=== PATIENT | female | born 1945 | race Caucasian/White ===

== ENCOUNTER 2022-06-01 19:03 | Inpatient (IN) ==
[2022-06-01 20:14] LABS: ABS Lymphocytes 0.6 10^3/ul (1.0-4.8); ABS Monocytes 0.4 10^3/ul (0-0.8); ABS Neutrophils 6.8 10^3/ul (1.5-7.7); Eosinophil % 0.3 %; Hematocrit 27 % (35-47); Hemoglobin 9.4 g/dL (12.0-16.0); Lymphocyte % 7.8 %; Mean Corpuscular HGB Conc 35 g/dL (31-36); Mean Corpuscular Hemoglobin 33 pg (27-31); Mean Corpuscular Volume 95 fL (80-97); Mean Platelet Volume 8.5 fL (7.4-10.4); Platelet Count 182 10^3/uL (150-450); Red Blood Count 2.83 10^6 /uL (3.70-4.87); Red Cell Distribution Width 12 % (10-15); White Blood Count 7.8 10^3/uL (3.5-10.8)
[2022-06-01 20:42] LABS: ALT 20 U/L (7-52); AST 19 U/L (13-39); Albumin 2.6 g/dL (3.2-5.2); Albumin/Globulin Ratio 0.4 (1-3); Alkaline Phosphatase 69 U/L (35-149); Blood Urea Nitrogen 70 mg/dL (6-24); CO2 Carbon Dioxide 36 mmol/L (22-32); Chloride 100 mmol/L (101-111); Creatine Kinase 54 U/L (10-223); Creatinine, Serum 3.23 mg/dL (0.51-0.95); Glucose 206 mg/dL (70-100); Lipase 43 U/L (11.0-82.0); Magnesium 1.8 mg/dL (1.9-2.7); Phosphorus 3.6 mg/dL (2.5-5.0); Potassium 4.4 mmol/L (3.5-5.0); Sodium 136 mmol/L (135-145); Total Protein 9.6 g/dL (6.4-8.9); eGFR CKD-EPI 14.1 (>60)
[2022-06-01 20:50] LABS: Calcium 16.2 mg/dL (8.6-10.3)
[2022-06-01 21:24] LABS: Venous Bicarbonate HCO3 31.1 mmol/L (24-28)
[2022-06-01 21:57] LABS: PCO2 Arterial 53 mmHg (35-45); PO2 Arterial 96 mmHg (80-100)
[2022-06-01] MEDS: Calcitonin (Salmon) INJ 200 UNITS/ML 2 ML VIAL (400 units) SUBCUT SCH (22:11)
[2022-06-01] MEDS: NS 0.9% 1000 ml BAG 1,000 ML IV SCH (22:11)
[2022-06-01 22:39] LABS: Urine Appearance Turbid; Urine Bilirubin Negative (Negative); Urine Blood 1+ (Negative); Urine Color Yellow; Urine Glucose Negative (Negative); Urine Ketones Negative (Negative); Urine Nitrite Positive (Negative); Urine Protein 1+(30 mg/dL) (Negative); Urine Specific Gravity 1.016 (1.002-1.030); Urine Urobilinogen Negative (Negative)
[2022-06-01] MEDS ORDERED: Zoledronic Acid 4 MG in NS 0.9% 100 ml BAG 100 ML IVPB ONE (22:46)
[2022-06-01 22:49] LABS: Urine Bacteria 1+ (Absent); Urine Red Blood Cell Trace(0-2/hpf) (Absent); Urine Squamous Epithelial Cell Present (Absent); Urine Transitional Epithelial Present (Absent); Urine White Blood Cell 3+(>20/hpf) (Absent)
[2022-06-02] MEDS: Heparin 5000 UNITS/ML 1 mL VIAL SUBCUT SCH ×4 (00:03→23:12)
[2022-06-02] MEDS ORDERED: Budesonide/Formote 160/4.5(NF) MDI INH SCH (01:00)
[2022-06-02 01:06] LABS: Calcium (PTH Intact) 16.2 mg/dL (8.6-10.3)
[2022-06-02 01:14] LABS: % Iron Saturation 26 % (15-55); Iron 60 ug/dL (50-212); Total Iron Binding Capacity 227 mcg/dL (250-450); Transferrin 162 mg/dL (203-362); Unsaturated Iron Binding 167 ug/dL
[2022-06-02 01:51] LABS: Vitamin D Total 25(OH) 26.5 ng/mL (20-50)
[2022-06-02 07:57] LABS: Albumin 2.3 g/dL (3.2-5.2); Albumin/Globulin Ratio 0.3 (1-3); Creatinine, Serum 2.66 mg/dL (0.51-0.95); Globulin 6.8 g/dL (2-4); Potassium 3.8 mmol/L (3.5-5.0); Total Bilirubin 0.2 mg/dL (0.2-1.0); Total Protein 9.1 g/dL (6.4-8.9); eGFR CKD-EPI 17.8 (>60)
[2022-06-02 07:59] LABS: Calcium 13.8 mg/dL (8.6-10.3)
[2022-06-02] MEDS: Mometasone/Formoter 200/5 MDI INH SCH ×2 (08:35→19:20)
[2022-06-02] MEDS: Albuterol/Ipratropium NEB.SOL (2.5/0.5 MG) 3 ML NEB.SOLN INH SCH ×5 (08:35→23:46)
[2022-06-02] MEDS ORDERED: Albuterol/Ipratropium NEB.SOL (2.5/0.5 MG) 3 ML NEB.SOLN INH SCH (09:00)
[2022-06-02] MEDS: Calcitonin (Salmon) INJ 200 UNITS/ML 2 ML VIAL (400 units) SUBCUT SCH ×2 (09:51→23:08)
[2022-06-02] MEDS: NS 0.9% 1000 ml BAG 1,000 ML IV SCH ×2 (12:59→18:29)
[2022-06-02 16:39] LABS: Albumin 2.4 g/dL (3.2-5.2)
[2022-06-02 16:42] LABS: Calcium 13.3 mg/dL (8.6-10.3)
[2022-06-02 16:45] LABS: Creatinine, Serum 2.51 mg/dL (0.51-0.95); eGFR CKD-EPI 19.1 (>60)
[2022-06-03] MEDS ORDERED: Furosemide 40 mg/4 ml IV VIAL IV SLOW PU ONE (00:13)
[2022-06-03] MEDS: NS 0.9% 1000 ml BAG 1,000 ML IV SCH ×2 (04:05→09:22)
[2022-06-03] MEDS: Heparin 5000 UNITS/ML 1 mL VIAL SUBCUT SCH ×4 (06:27→23:28)
[2022-06-03] MEDS: Mometasone/Formoter 200/5 MDI INH SCH ×2 (07:51→19:43)
[2022-06-03] MEDS ORDERED: Ondansetron 4 mg VIAL 2 MG/ML 2 ml VIAL IV ONE (09:21)
[2022-06-03 09:51] LABS: Hematocrit 27 % (35-47); Hemoglobin 8.7 g/dL (12.0-16.0); Mean Corpuscular HGB Conc 33 g/dL (31-36); Mean Corpuscular Hemoglobin 31 pg (27-31); Mean Corpuscular Volume 96 fL (80-97); Mean Platelet Volume 8.6 fL (7.4-10.4); Platelet Count 171 10^3/uL (150-450); Red Blood Count 2.77 10^6 /uL (3.70-4.87); Red Cell Distribution Width 13 % (10-15)
[2022-06-03 10:58] LABS: Albumin 2.3 g/dL (3.2-5.2); Albumin/Globulin Ratio 0.4 (1-3); Calcium 11.4 mg/dL (8.6-10.3); Creatinine, Serum 2.01 mg/dL (0.51-0.95); Globulin 6.3 g/dL (2-4); Magnesium 1.3 mg/dL (1.9-2.7); Potassium 3.7 mmol/L (3.5-5.0); Total Bilirubin 0.3 mg/dL (0.2-1.0); Total Protein 8.6 g/dL (6.4-8.9); eGFR CKD-EPI 24.9 (>60)
[2022-06-03] MEDS ORDERED: Magnesium Sulf 4 GM/100 ML IV 4,000 MG/100 ML BAG IVPB ONE (12:03)
[2022-06-03] MEDS ORDERED: Potassium Chlor 20 meq TAB.ER PO ONE (12:11)
[2022-06-03] MEDS ORDERED: Furosemide 40 mg/4 ml IV VIAL IV ONE (12:13)
[2022-06-03] MEDS: Calcitonin (Salmon) INJ 200 UNITS/ML 2 ML VIAL (400 units) SUBCUT SCH (12:51)
[2022-06-03 12:52] LABS: Phosphorus 2.3 mg/dL (2.5-5.0)
[2022-06-03] MEDS: Potassium & Sodium Phos 250 mg = 1 PACKET PO SCH ×2 (15:36→23:28)
[2022-06-03 23:21] LABS: Hematocrit 25 % (35-47); Hemoglobin 8.2 g/dL (12.0-16.0); Mean Corpuscular HGB Conc 33 g/dL (31-36); Mean Corpuscular Hemoglobin 32 pg (27-31); Mean Corpuscular Volume 96 fL (80-97); Mean Platelet Volume 8.6 fL (7.4-10.4); Platelet Count 157 10^3/uL (150-450); Red Blood Count 2.59 10^6 /uL (3.70-4.87); Red Cell Distribution Width 13 % (10-15); White Blood Count 6.2 10^3/uL (3.5-10.8)
[2022-06-03 23:53] LABS: Calcium 10.6 mg/dL (8.6-10.3); Creatinine, Serum 2.07 mg/dL (0.51-0.95); Magnesium 2.3 mg/dL (1.9-2.7); Phosphorus 2.3 mg/dL (2.5-5.0); eGFR CKD-EPI 24.1 (>60)
[2022-06-04] MEDS: Heparin 5000 UNITS/ML 1 mL VIAL SUBCUT SCH ×3 (06:11→23:36)
[2022-06-04 07:35] LABS: ALT 33 U/L (7-52); AST 25 U/L (13-39); Albumin/Globulin Ratio 0.3 (1-3); Alkaline Phosphatase 78 U/L (35-149); Blood Urea Nitrogen 50 mg/dL (6-24); CO2 Carbon Dioxide 31 mmol/L (22-32); Calcium 10.3 mg/dL (8.6-10.3); Chloride 110 mmol/L (101-111); Creatinine, Serum 2.09 mg/dL (0.51-0.95); Globulin 6.1 g/dL (2-4); Glucose 76 mg/dL (70-100); Magnesium 2.1 mg/dL (1.9-2.7); Phosphorus 2.3 mg/dL (2.5-5.0); Sodium 141 mmol/L (135-145); Total Protein 8.1 g/dL (6.4-8.9); eGFR CKD-EPI 23.8 (>60)
[2022-06-04 08:39] LABS: Vitamin D Total 25(OH) 24.3 ng/mL (20-50)
[2022-06-04] MEDS: Potassium & Sodium Phos 250 mg = 1 PACKET PO SCH ×3 (08:48→23:35)
[2022-06-04] MEDS: Mometasone/Formoter 200/5 MDI INH SCH ×4 (08:52→19:27)
[2022-06-04] MEDS: cefTRIAXone 1 gm/50 mL D5W 1 GM/50 ML BAG IV SCH (11:49)
[2022-06-04] MEDS: Albuterol/Ipratropium NEB.SOL (2.5/0.5 MG) 3 ML NEB.SOLN INH SCH ×2 (13:23→19:27)
[2022-06-05] MEDS: Heparin 5000 UNITS/ML 1 mL VIAL SUBCUT SCH ×3 (05:30→23:19)
[2022-06-05 06:19] LABS: Hematocrit 23 % (35-47); Hemoglobin 8.1 g/dL (12.0-16.0); Mean Corpuscular HGB Conc 35 g/dL (31-36); Mean Corpuscular Hemoglobin 34 pg (27-31); Mean Corpuscular Volume 96 fL (80-97); Mean Platelet Volume 9.1 fL (7.4-10.4); Platelet Count 138 10^3/uL (150-450); Red Cell Distribution Width 13 % (10-15); White Blood Count 5.5 10^3/uL (3.5-10.8)
[2022-06-05 06:52] LABS: Albumin/Globulin Ratio 0.3 (1-3); Calcium 9.5 mg/dL (8.6-10.3); Creatinine, Serum 1.98 mg/dL (0.51-0.95); Magnesium 1.8 mg/dL (1.9-2.7); Phosphorus 2.4 mg/dL (2.5-5.0); Potassium 3.8 mmol/L (3.5-5.0); Total Bilirubin 0.3 mg/dL (0.2-1.0); eGFR CKD-EPI 25.4 (>60)
[2022-06-05] MEDS ORDERED: Magnesium Sulfate 2 gm BAG 2 GM/50 ML BAG IVPB ONE (07:34)
[2022-06-05] MEDS: Albuterol/Ipratropium NEB.SOL (2.5/0.5 MG) 3 ML NEB.SOLN INH SCH ×4 (07:52→19:12)
[2022-06-05] MEDS: Mometasone/Formoter 200/5 MDI INH SCH ×2 (07:53→19:13)
[2022-06-05] MEDS: Potassium & Sodium Phos 250 mg = 1 PACKET PO SCH ×3 (08:32→23:18)
[2022-06-05] MEDS ORDERED: NS 0.9% 1000 ml BAG 1,000 ML IV SCH ×2 (11:00→15:15)
[2022-06-05] MEDS: cefTRIAXone 1 gm/50 mL D5W 1 GM/50 ML BAG IV SCH (11:49)
[2022-06-06] MEDS: Heparin 5000 UNITS/ML 1 mL VIAL SUBCUT SCH ×3 (05:37→22:05)
[2022-06-06 06:50] LABS: Hematocrit 23 % (35-47); Hemoglobin 8.1 g/dL (12.0-16.0); Mean Corpuscular HGB Conc 36 g/dL (31-36); Mean Corpuscular Hemoglobin 34 pg (27-31); Mean Corpuscular Volume 96 fL (80-97); Mean Platelet Volume 9.2 fL (7.4-10.4); Platelet Count 143 10^3/uL (150-450); Red Blood Count 2.35 10^6 /uL (3.70-4.87); Red Cell Distribution Width 13 % (10-15); White Blood Count 6.6 10^3/uL (3.5-10.8)
[2022-06-06] MEDS: Albuterol/Ipratropium NEB.SOL (2.5/0.5 MG) 3 ML NEB.SOLN INH SCH ×4 (07:27→19:42)
[2022-06-06] MEDS: Mometasone/Formoter 200/5 MDI INH SCH ×2 (07:27→19:42)
[2022-06-06 08:08] LABS: Calcium 8.8 mg/dL (8.6-10.3); Creatinine, Serum 1.77 mg/dL (0.51-0.95); Magnesium 1.8 mg/dL (1.9-2.7); eGFR CKD-EPI 29.1 (>60)
[2022-06-06] MEDS ORDERED: Magnesium Sulfate 2 gm BAG 2 GM/50 ML BAG IVPB ONE (08:51)
[2022-06-06] MEDS ORDERED: Senna TAB 8.6 mg TAB PO ONE (08:57)
[2022-06-06] MEDS ORDERED: Polyethylene Glycol 3350 17 GM PACKET PO PRN (08:57)
[2022-06-06] MEDS: Potassium & Sodium Phos 250 mg = 1 PACKET PO SCH ×3 (09:02→22:04)
[2022-06-06] MEDS: cefTRIAXone 1 gm/50 mL D5W 1 GM/50 ML BAG IV SCH (11:27)
[2022-06-06 13:30] LABS: Phosphorus 2.4 mg/dL (2.5-5.0)
[2022-06-06 13:54] LABS: Folate 7.33 ng/mL (5.90-24.80)
[2022-06-06 14:33] LABS: Kappa Free Light Chain 1.08 mg/dL; Lambda Free Light Chain, S 131 mg/dL
[2022-06-06 17:12] LABS: XCalcitriol <8.0 pg/mL (18-78)
[2022-06-07] MEDS: Albuterol/Ipratropium NEB.SOL (2.5/0.5 MG) 3 ML NEB.SOLN INH SCH ×5 (01:31→19:57)
[2022-06-07] MEDS: Heparin 5000 UNITS/ML 1 mL VIAL SUBCUT SCH ×3 (05:15→21:58)
[2022-06-07 06:38] LABS: Hematocrit 23 % (35-47); Hemoglobin 7.8 g/dL (12.0-16.0); Mean Corpuscular HGB Conc 34 g/dL (31-36); Mean Corpuscular Hemoglobin 33 pg (27-31); Mean Corpuscular Volume 97 fL (80-97); Mean Platelet Volume 9.1 fL (7.4-10.4); Platelet Count 130 10^3/uL (150-450); Red Blood Count 2.33 10^6 /uL (3.70-4.87); Red Cell Distribution Width 13 % (10-15)
[2022-06-07 07:06] LABS: Calcium 8.2 mg/dL (8.6-10.3); Creatinine, Serum 1.8 mg/dL (0.51-0.95); Phosphorus 2.9 mg/dL (2.5-5.0); Potassium 3.8 mmol/L (3.5-5.0); eGFR CKD-EPI 28.5 (>60)
[2022-06-07] MEDS: Mometasone/Formoter 200/5 MDI INH SCH ×2 (07:12→20:03)
[2022-06-07 09:07] LABS: Albumin 2.9 g/dL (3.4-4.7); Albumin/Globulin Ratio 0.45; Gamma Globulin 4.3 g/dL (0.6-1.6); Total Protein(PEP) 9.5 g/dL (6.3 - 7.9)
[2022-06-07] MEDS ORDERED: NS 0.9% 1000 ml BAG 1,000 ML IV SCH (10:00)
[2022-06-07] MEDS: cefTRIAXone 1 gm/50 mL D5W 1 GM/50 ML BAG IV SCH (11:15)
[2022-06-08 05:40] LABS: Flag, M-protein Isotype Positive (Negative)
[2022-06-08] MEDS: Heparin 5000 UNITS/ML 1 mL VIAL SUBCUT SCH ×4 (06:01→22:13)
[2022-06-08] MEDS: Albuterol/Ipratropium NEB.SOL (2.5/0.5 MG) 3 ML NEB.SOLN INH SCH ×4 (07:08→19:31)
[2022-06-08] MEDS: Mometasone/Formoter 200/5 MDI INH SCH ×2 (07:08→19:31)
[2022-06-08 08:39] LABS: Albumin 5.5 mg/dL; Albumin/Globulin Ratio 0.09; Gamma Globulin 51.1 mg/dL; Protein,Total, Random Urine 69 mg/dL
[2022-06-08 08:41] LABS: Hematocrit 22 % (35-47); Hemoglobin 7.6 g/dL (12.0-16.0); Mean Corpuscular HGB Conc 35 g/dL (31-36); Mean Corpuscular Hemoglobin 33 pg (27-31); Mean Corpuscular Volume 96 fL (80-97); Mean Platelet Volume 8.9 fL (7.4-10.4); Platelet Count 136 10^3/uL (150-450); Red Blood Count 2.28 10^6 /uL (3.70-4.87); Red Cell Distribution Width 13 % (10-15); White Blood Count 5.6 10^3/uL (3.5-10.8)
[2022-06-08 09:23] LABS: Calcium 7.8 mg/dL (8.6-10.3); Creatinine, Serum 1.77 mg/dL (0.51-0.95); Magnesium 1.7 mg/dL (1.9-2.7); Phosphorus 1.9 mg/dL (2.5-5.0); Potassium 3.6 mmol/L (3.5-5.0); eGFR CKD-EPI 29.1 (>60)
[2022-06-08 09:24] LABS: Albumin 2.5 g/dL (3.4-4.7); Albumin/Globulin Ratio 0.41; Gamma Globulin 4.1 g/dL (0.6-1.6); Total Protein(PEP) 8.5 g/dL (6.3 - 7.9)
[2022-06-08] MEDS ORDERED: Magnesium Sulfate 2 gm BAG 2 GM/50 ML BAG IVPB ONE (09:30)
[2022-06-08] MEDS ORDERED: Lidocaine 1% VIAL 10 MG/ML VIAL 30 ML INJ ONE (11:58)
[2022-06-08 14:21] LABS: XCalcitriol <8.0 pg/mL (18-78)
[2022-06-08 14:51] LABS: Immunoglobulin M 18 mg/dL (37 - 286)
[2022-06-08 15:34] LABS: Immunoglobulin G 6920 mg/dL (767 - 1590)
[2022-06-08] MEDS: cefTRIAXone 1 gm/50 mL D5W 1 GM/50 ML BAG IV SCH (16:00)
[2022-06-08] MEDS: Potassium & Sodium Phos 250 mg = 1 PACKET PO SCH ×2 (18:31→22:04)
[2022-06-09] MEDS: Albuterol HFA INHALER 8 gm MDI INH PRN (05:31)
[2022-06-09] MEDS: Heparin 5000 UNITS/ML 1 mL VIAL SUBCUT SCH ×3 (06:02→20:48)
[2022-06-09] MEDS ORDERED: methylPREDNISolone SOD SUCC 40 mg/ml 1 ml VIAL IV ONE (06:16)
[2022-06-09] MEDS ORDERED: methylPREDNISolone SOD SUCC 40 mg/ml 1 ml VIAL IV SCH (07:00)
[2022-06-09] MEDS: Albuterol/Ipratropium NEB.SOL (2.5/0.5 MG) 3 ML NEB.SOLN INH SCH ×4 (07:22→19:52)
[2022-06-09] MEDS: Mometasone/Formoter 200/5 MDI INH SCH ×2 (07:22→19:51)
[2022-06-09] MEDS ORDERED: Albuterol/Ipratropium NEB.SOL (2.5/0.5 MG) 3 ML NEB.SOLN INH ONE (08:37)
[2022-06-09 08:49] LABS: Calcium 7.7 mg/dL (8.6-10.3); Creatinine, Serum 1.85 mg/dL (0.51-0.95); Magnesium 1.7 mg/dL (1.9-2.7); Phosphorus 2.5 mg/dL (2.5-5.0); Potassium 4.3 mmol/L (3.5-5.0); eGFR CKD-EPI 27.6 (>60)
[2022-06-09 08:55] LABS: Hematocrit 26 % (35-47); Hemoglobin 8.6 g/dL (12.0-16.0); Mean Corpuscular HGB Conc 33 g/dL (31-36); Mean Corpuscular Hemoglobin 33 pg (27-31); Mean Corpuscular Volume 99 fL (80-97); Mean Platelet Volume 9.3 fL (7.4-10.4); Platelet Count 136 10^3/uL (150-450); Red Blood Count 2.61 10^6 /uL (3.70-4.87); Red Cell Distribution Width 13 % (10-15); White Blood Count 5.6 10^3/uL (3.5-10.8)
[2022-06-09] MEDS ORDERED: Magnesium Sulfate 2 gm BAG 2 GM/50 ML BAG IVPB ONE (09:21)
[2022-06-09] MEDS: Potassium & Sodium Phos 250 mg = 1 PACKET PO SCH ×3 (10:05→20:48)
[2022-06-09] MEDS ORDERED: NS 0.9% 1000 ml BAG 1,000 ML IV SCH (12:15)
[2022-06-10] MEDS: Heparin 5000 UNITS/ML 1 mL VIAL SUBCUT SCH ×3 (06:43→20:45)
[2022-06-10] MEDS: Mometasone/Formoter 200/5 MDI INH SCH ×2 (07:04→19:42)
[2022-06-10] MEDS: Albuterol/Ipratropium NEB.SOL (2.5/0.5 MG) 3 ML NEB.SOLN INH SCH ×4 (07:04→19:23)
[2022-06-10 07:05] LABS: Hematocrit 21 % (35-47); Hemoglobin 6.9 g/dL (12.0-16.0); Mean Corpuscular HGB Conc 33 g/dL (31-36); Mean Corpuscular Hemoglobin 32 pg (27-31); Mean Corpuscular Volume 97 fL (80-97); Mean Platelet Volume 9.2 fL (7.4-10.4); Platelet Count 123 10^3/uL (150-450); Red Blood Count 2.14 10^6 /uL (3.70-4.87); Red Cell Distribution Width 13 % (10-15); White Blood Count 2.2 10^3/uL (3.5-10.8)
[2022-06-10 07:33] LABS: Calcium 6.9 mg/dL (8.6-10.3); Magnesium 1.9 mg/dL (1.9-2.7); Potassium 4.5 mmol/L (3.5-5.0)
[2022-06-10 07:38] LABS: Creatinine, Serum 1.98 mg/dL (0.51-0.95); Phosphorus 3.4 mg/dL (2.5-5.0); eGFR CKD-EPI 25.4 (>60)
[2022-06-10] MEDS: Potassium & Sodium Phos 250 mg = 1 PACKET PO SCH ×3 (10:05→20:42)
[2022-06-10 19:48] LABS: Hematocrit 25 % (35-47); Hemoglobin 8.3 g/dL (12.0-16.0); Mean Corpuscular HGB Conc 33 g/dL (31-36); Mean Corpuscular Hemoglobin 31 pg (27-31); Mean Corpuscular Volume 93 fL (80-97); Mean Platelet Volume 9.4 fL (7.4-10.4); Platelet Count 132 10^3/uL (150-450); Red Blood Count 2.71 10^6 /uL (3.70-4.87); Red Cell Distribution Width 15 % (10-15); White Blood Count 3.5 10^3/uL (3.5-10.8)
[2022-06-11] MEDS: Heparin 5000 UNITS/ML 1 mL VIAL SUBCUT SCH ×3 (05:26→21:22)
[2022-06-11 06:15] LABS: Hematocrit 25 % (35-47); Hemoglobin 8.2 g/dL (12.0-16.0); Mean Corpuscular HGB Conc 33 g/dL (31-36); Mean Corpuscular Hemoglobin 31 pg (27-31); Mean Corpuscular Volume 95 fL (80-97); Mean Platelet Volume 9.4 fL (7.4-10.4); Platelet Count 100 10^3/uL (150-450); Red Blood Count 2.62 10^6 /uL (3.70-4.87); Red Cell Distribution Width 16 % (10-15); White Blood Count 2.4 10^3/uL (3.5-10.8)
[2022-06-11 06:26] LABS: Potassium 4.8 mmol/L (3.5-5.0)
[2022-06-11 06:32] LABS: Creatinine, Serum 1.99 mg/dL (0.51-0.95); eGFR CKD-EPI 25.3 (>60)
[2022-06-11 06:40] LABS: Calcium 6.4 mg/dL (8.6-10.3)
[2022-06-11] MEDS: Albuterol/Ipratropium NEB.SOL (2.5/0.5 MG) 3 ML NEB.SOLN INH SCH ×2 (07:14→23:02)
[2022-06-11] MEDS: Mometasone/Formoter 200/5 MDI INH SCH ×2 (07:33→19:11)
[2022-06-11 08:18] LABS: Albumin 1.9 g/dL (3.2-5.2)
[2022-06-11] MEDS: Potassium & Sodium Phos 250 mg = 1 PACKET PO SCH ×3 (08:59→21:21)
[2022-06-11] MEDS: Albuterol HFA INHALER 8 gm MDI INH PRN (13:44)
[2022-06-12] MEDS: Heparin 5000 UNITS/ML 1 mL VIAL SUBCUT SCH ×3 (05:20→21:22)
[2022-06-12 06:23] LABS: ABS Lymphocytes 0.5 10^3/ul (1.0-4.8); ABS Monocytes 0.4 10^3/ul (0-0.8); ABS Neutrophils 2.1 10^3/ul (1.5-7.7); Hematocrit 25 % (35-47); Hemoglobin 8.3 g/dL (12.0-16.0); Lymphocyte % 17.7 %; Mean Corpuscular HGB Conc 34 g/dL (31-36); Mean Corpuscular Hemoglobin 31 pg (27-31); Mean Corpuscular Volume 93 fL (80-97); Nucleated Red Blood Cells % 0.2; Platelet Count 138 10^3/uL (150-450); Red Blood Count 2.65 10^6 /uL (3.70-4.87); Red Cell Distribution Width 15 % (10-15); White Blood Count 2.9 10^3/uL (3.5-10.8)
[2022-06-12] MEDS: Albuterol/Ipratropium NEB.SOL (2.5/0.5 MG) 3 ML NEB.SOLN INH SCH ×3 (06:40→18:26)
[2022-06-12 06:45] LABS: Creatinine, Serum 1.67 mg/dL (0.51-0.95); Magnesium 1.5 mg/dL (1.9-2.7); Potassium 4.5 mmol/L (3.5-5.0); eGFR CKD-EPI 31.2 (>60)
[2022-06-12 06:50] LABS: Calcium 6.2 mg/dL (8.6-10.3)
[2022-06-12] MEDS: Mometasone/Formoter 200/5 MDI INH SCH ×2 (07:38→18:36)
[2022-06-12] MEDS: Potassium & Sodium Phos 250 mg = 1 PACKET PO SCH ×3 (08:24→21:20)
[2022-06-12] MEDS ORDERED: Magnesium Sulf 4 GM/100 ML IV 4,000 MG/100 ML BAG IVPB ONE (09:30)
[2022-06-12] MEDS: Albuterol HFA INHALER 8 gm MDI INH PRN (17:38)
[2022-06-13] MEDS: Albuterol/Ipratropium NEB.SOL (2.5/0.5 MG) 3 ML NEB.SOLN INH SCH ×2 (02:55→11:33)
[2022-06-13] MEDS: Heparin 5000 UNITS/ML 1 mL VIAL SUBCUT SCH ×2 (05:10→13:46)
[2022-06-13 06:01] LABS: ABS Lymphocytes 0.4 10^3/ul (1.0-4.8); ABS Monocytes 0.4 10^3/ul (0-0.8); ABS Neutrophils 3.4 10^3/ul (1.5-7.7); Hematocrit 28 % (35-47); Hemoglobin 9.1 g/dL (12.0-16.0); Lymphocyte % 8.9 %; Mean Corpuscular HGB Conc 33 g/dL (31-36); Mean Corpuscular Hemoglobin 31 pg (27-31); Mean Corpuscular Volume 92 fL (80-97); Mean Platelet Volume 8.9 fL (7.4-10.4); Nucleated Red Blood Cells % 0.1; Platelet Count 148 10^3/uL (150-450); Red Blood Count 2.98 10^6 /uL (3.70-4.87); Red Cell Distribution Width 15 % (10-15); White Blood Count 4.2 10^3/uL (3.5-10.8)
[2022-06-13 06:17] LABS: Calcium 6.6 mg/dL (8.6-10.3); Creatinine, Serum 1.61 mg/dL (0.51-0.95); Potassium 4.8 mmol/L (3.5-5.0); eGFR CKD-EPI 32.6 (>60)
[2022-06-13] MEDS: Mometasone/Formoter 200/5 MDI INH SCH (07:26)
[2022-06-13 08:27] LABS: Magnesium 2.3 mg/dL (1.9-2.7)
[2022-06-13 10:06] LABS: Albumin 2.3 g/dL (3.2-5.2)
[2022-06-13] MEDS: Potassium & Sodium Phos 250 mg = 1 PACKET PO SCH ×2 (12:12→13:47)
[2022-06-13 14:48] VITALS: BP 112/72
[2022-06-13 15:04] LABS: Rapid COVID-19 Molecular Undetected (Undetected)
== END 2022-06-13 17:35 | DRG 640 ==
LOC: ED 19:03 → EDHOLD 23:00 → SUATTDRO 23:00 → EDHOLD 06-02 19:24 → MEDTELE 06-02 20:06 → MED 06-10 08:15
PROVIDERS: ADMIT Student in an Organized Health Care Education/Training Program; ATTEND Internal Medicine

== ENCOUNTER 2022-10-02 04:27 | Observation (INO) ==
[2022-10-02] MEDS ORDERED: methylPREDNISolone SOD SUCC 125 mg 2 ML VIAL IV ONE (05:39)
[2022-10-02] MEDS ORDERED: Albuterol/Ipratropium NEB.SOL (2.5/0.5 MG) 3 ML NEB.SOLN INH ONE (05:39)
[2022-10-02] MEDS ORDERED: Albuterol 2.5mg/3 ml (0.083%) NEB.SOLN INH ONE (05:49)
[2022-10-02] MEDS: Albuterol 2.5mg/3 ml (0.083%) NEB.SOLN INH SCH (05:59)
[2022-10-02 06:02] LABS: PCO2 Arterial 49 mmHg (35-45); PO2 Arterial 91 mmHg (80-100)
[2022-10-02 06:04] LABS: ABS Eosinophils 0.3 10^3/uL (0.0-0.5); ABS Lymphocytes 0.7 10^3/uL (1.0-4.8); ABS Monocytes 0.8 10^3/uL (0.0-0.9); ABS Neutrophils 8.9 10^3/uL (1.5-7.6); Eosinophil % 2.9 %; Hemoglobin 9.1 g/dL (11.5-14.3); Lymphocyte % 6.6 %; Mean Corpuscular Hemoglobin 30.5 pg (27-33); Mean Corpuscular Hgb Conc 33.6 g/dL (31-36); Mean Corpuscular Volume 90.9 fL (80-97); Mean Platelet Volume 8.2 fL (7.5-11.2); Platelet Count 206 10^3/uL (150-450); Red Blood Count 2.97 10^6/uL (3.63-4.92); Red Cell Distribution Width 13.9 % (12-17); White Blood Count 10.8 10^3/uL (3.8-11.8)
[2022-10-02 06:13] LABS: Activated Partial Thrombo Time 26.6 seconds (26.0-38.0); INR 1.05 (0.88-1.18)
[2022-10-02 06:20] LABS: Albumin 3.2 g/dL (3.2-5.2); Albumin/Globulin Ratio 0.6 (1-3); C Reactive Protein 8.51 mg/L (<8.01); Calcium 8.9 mg/dL (8.6-10.3); Creatinine, Serum 1.18 mg/dL (0.51-0.95); Globulin 5.1 g/dL (2-4); Potassium 4.3 mmol/L (3.5-5.0); Total Bilirubin 0.3 mg/dL (0.2-1.0); Total Protein 8.3 g/dL (6.4-8.9)
[2022-10-02] MEDS ORDERED: Azithromycin 500 mg/250 ml NS 500 MG/250 ML BAG IVPB ONE (06:44)
[2022-10-02] MEDS ORDERED: cefTRIAXone 1 gm/50 mL D5W 1 GM/50 ML BAG IV ONE (06:44)
[2022-10-02 07:34] LABS: High Sensitivity Troponin 1 Hr 22 pg/mL (<15)
[2022-10-02] MEDS ORDERED: Albuterol/Ipratropium NEB.SOL (2.5/0.5 MG) 3 ML NEB.SOLN INH PRN (08:51)
[2022-10-02] MEDS ORDERED: Magnesium Hydroxide LIQ 30 ML UDC PO PRN (08:51)
[2022-10-02] MEDS ORDERED: Albuterol HFA INHALER 8 gm MDI INH PRN (08:51)
[2022-10-02] MEDS ORDERED: Albuterol 2.5mg/3 ml (0.083%) NEB.SOLN INH PRN (08:54)
[2022-10-02] MEDS ORDERED: Furosemide 20 mg/2 ml IV VIAL IV SLOW PU ONE (08:57)
[2022-10-02] MEDS ORDERED: Azithromycin 500 mg/250 ml NS 500 MG/250 ML BAG IVPB SCH (09:00)
[2022-10-02] MEDS: Mometasone/Formoter 200/5 MDI INH SCH ×2 (10:00→18:59)
[2022-10-02] MEDS: Enoxaparin 40 MG/0.4 ML SYR SUBCUT SCH (10:03)
[2022-10-02] MEDS: methylPREDNISolone SOD SUCC 40 mg/ml 1 ml VIAL IV SCH ×2 (15:04→21:02)
[2022-10-03] MEDS: Nystatin TOP POWDER 15 GM BTL TOPICAL SCH ×3 (00:04→21:37)
[2022-10-03] MEDS: methylPREDNISolone SOD SUCC 40 mg/ml 1 ml VIAL IV SCH ×3 (05:44→21:38)
[2022-10-03 06:27] LABS: ABS Lymphocytes 0.4 10^3/uL (1.0-4.8); ABS Monocytes 0.3 10^3/uL (0.0-0.9); ABS Neutrophils 6.6 10^3/uL (1.5-7.6); Hematocrit 23.6 % (35-45); Lymphocyte % 5.8 %; Mean Corpuscular Hemoglobin 30.8 pg (27-33); Mean Corpuscular Hgb Conc 33.9 g/dL (31-36); Mean Corpuscular Volume 90.7 fL (80-97); Mean Platelet Volume 8.5 fL (7.5-11.2); Platelet Count 187 10^3/uL (150-450); Red Cell Distribution Width 13.7 % (12-17); White Blood Count 7.3 10^3/uL (3.8-11.8)
[2022-10-03 07:13] LABS: Calcium 8.7 mg/dL (8.6-10.3); Potassium 4.9 mmol/L (3.5-5.0)
[2022-10-03 07:18] LABS: Creatinine, Serum 1.22 mg/dL (0.51-0.95); eGFR CKD-EPI 45.1 (>60)
[2022-10-03] MEDS ORDERED: cefTRIAXone 1 gm/50 mL D5W 1 GM/50 ML BAG IV SCH (07:30)
[2022-10-03] MEDS: Mometasone/Formoter 200/5 MDI INH SCH ×2 (07:42→19:21)
[2022-10-03] MEDS: Azithromycin 500 mg/250 ml NS 500 MG/250 ML BAG IVPB SCH (09:43)
[2022-10-03] MEDS: Enoxaparin 40 MG/0.4 ML SYR SUBCUT SCH (09:43)
[2022-10-03] MEDS: cefTRIAXone 1 GM ONETIME (ADVAN) IVPB SCH (12:10)
[2022-10-04] MEDS: methylPREDNISolone SOD SUCC 40 mg/ml 1 ml VIAL IV SCH (05:33)
[2022-10-04 06:40] LABS: ABS Lymphocytes 0.4 10^3/uL (1.0-4.8); ABS Monocytes 0.3 10^3/uL (0.0-0.9); ABS Neutrophils 8.5 10^3/uL (1.5-7.6); ABS Nucleated RBC 0.01 10^3/ul; Hematocrit 24.5 % (35-45); Hemoglobin 8.1 g/dL (11.5-14.3); Lymphocyte % 4.5 %; Mean Corpuscular Hemoglobin 30.4 pg (27-33); Mean Corpuscular Volume 92.2 fL (80-97); Mean Platelet Volume 8.4 fL (7.5-11.2); Nucleated Red Blood Cells % 0.1 /100 WBC (0.0-0.4); Platelet Count 202 10^3/uL (150-450); Red Blood Count 2.66 10^6/uL (3.63-4.92); Red Cell Distribution Width 14.1 % (12-17); White Blood Count 9.3 10^3/uL (3.8-11.8)
[2022-10-04 07:00] LABS: Calcium 8.5 mg/dL (8.6-10.3); Creatinine, Serum 1.34 mg/dL (0.51-0.95); Potassium 4.6 mmol/L (3.5-5.0); eGFR CKD-EPI 40.3 (>60)
[2022-10-04] MEDS: Mometasone/Formoter 200/5 MDI INH SCH (07:11)
[2022-10-04] MEDS: Enoxaparin 40 MG/0.4 ML SYR SUBCUT SCH (08:37)
[2022-10-04] MEDS: cefTRIAXone 1 GM ONETIME (ADVAN) IVPB SCH (08:37)
[2022-10-04] MEDS: Azithromycin 500 mg/250 ml NS 500 MG/250 ML BAG IVPB SCH (09:40)
[2022-10-04 10:10] VITALS: BP 132/73
[2022-10-04] MEDS: Nystatin TOP POWDER 15 GM BTL TOPICAL SCH (10:30)
== END 2022-10-04 11:20 ==
LOC: ED 04:27 → EDHOLD 04:27 → MED 09:41
PROVIDERS: ADMIT Internal Medicine; ATTEND Internal Medicine

== ENCOUNTER 2022-10-11 05:02 | Inpatient (IN) ==
[2022-10-11] MEDS ORDERED: Levalbuterol 1.25MG/0.5ML NEB.SOL INH ONE (05:10)
[2022-10-11] MEDS ORDERED: methylPREDNISolone SOD SUCC 125 mg 2 ML VIAL IV ONE (05:19)
[2022-10-11 05:32] LABS: ABS Eosinophils 0.1 10^3/uL (0.0-0.5); ABS Lymphocytes 0.9 10^3/uL (1.0-4.8); ABS Monocytes 1.1 10^3/uL (0.0-0.9); Eosinophil % 0.6 %; Hematocrit 27.7 % (35-45); Hemoglobin 9.2 g/dL (11.5-14.3); Lymphocyte % 7.9 %; Mean Corpuscular Hemoglobin 29.8 pg (27-33); Mean Corpuscular Hgb Conc 33.2 g/dL (31-36); Mean Corpuscular Volume 89.8 fL (80-97); Mean Platelet Volume 8.1 fL (7.5-11.2); Platelet Count 233 10^3/uL (150-450); Red Blood Count 3.09 10^6/uL (3.63-4.92); Red Cell Distribution Width 14.1 % (12-17); White Blood Count 11.1 10^3/uL (3.8-11.8)
[2022-10-11 05:48] LABS: Albumin 3.2 g/dL (3.2-5.2); Albumin/Globulin Ratio 0.7 (1-3); Calcium 8.5 mg/dL (8.6-10.3); Creatinine, Serum 1.08 mg/dL (0.51-0.95); Globulin 4.6 g/dL (2-4); Potassium 4.2 mmol/L (3.5-5.0); Total Bilirubin 0.3 mg/dL (0.2-1.0); Total Protein 7.8 g/dL (6.4-8.9); eGFR CKD-EPI 52.3 (>60)
[2022-10-11] MEDS ORDERED: Albuterol (2.5 MG) 0.5 % CONC 0.5 ML NEB.SOLN INH ONE ×2 (06:05→06:17)
[2022-10-11] MEDS ORDERED: Magnesium Sulfate 2 gm BAG 2 GM/50 ML BAG IVPB ONE (07:07)
[2022-10-11 07:14] LABS: High Sensitivity Troponin 1 Hr 15 pg/mL (<15)
[2022-10-11] MEDS ORDERED: cefTRIAXone 1 gm/50 mL D5W 1 GM/50 ML BAG IV ONE (07:35)
[2022-10-11] MEDS ORDERED: DOXYcycline 100 MG in NS 0.9% 250 ml 250 ML IVPB ONE (07:36)
[2022-10-11 07:57] LABS: PCO2 Arterial 51 mmHg (35-45); PO2 Arterial 99 mmHg (80-100)
[2022-10-11] MEDS ORDERED: Remdesivir 100 mg Vial 200 MG in NS 0.9% 250 ml 210 ML IV ONE (08:30)
[2022-10-11] MEDS ORDERED: Polyethylene Glycol 3350 17 GM PACKET PO PRN (08:35)
[2022-10-11] MEDS ORDERED: Ondansetron 4 mg VIAL 2 MG/ML 2 ml VIAL IV PRN (08:35)
[2022-10-11] MEDS ORDERED: Senna TAB 8.6 mg TAB PO PRN (08:35)
[2022-10-11] MEDS ORDERED: Albuterol HFA INHALER 8 gm MDI INH PRN (08:50)
[2022-10-11 09:29] LABS: INR 1.13 (0.88-1.18)
[2022-10-11] MEDS: Enoxaparin 40 MG/0.4 ML SYR SUBCUT SCH (10:02)
[2022-10-11] MEDS: Albuterol/Ipratropium NEB.SOL (2.5/0.5 MG) 3 ML NEB.SOLN INH SCH ×2 (14:25→18:55)
[2022-10-11] MEDS: Mometasone/Formoter 200/5 MDI INH SCH ×2 (19:01→19:16)
[2022-10-12 07:08] LABS: INR 1.16 (0.88-1.18)
[2022-10-12 07:24] LABS: Albumin/Globulin Ratio 0.7 (1-3); Calcium 8.4 mg/dL (8.6-10.3); Creatinine, Serum 1.2 mg/dL (0.51-0.95); Globulin 4.1 g/dL (2-4); Potassium 4.5 mmol/L (3.5-5.0); Total Bilirubin 0.3 mg/dL (0.2-1.0); Total Protein 7.1 g/dL (6.4-8.9)
[2022-10-12] MEDS: Albuterol/Ipratropium NEB.SOL (2.5/0.5 MG) 3 ML NEB.SOLN INH SCH ×3 (07:41→19:56)
[2022-10-12] MEDS: Mometasone/Formoter 200/5 MDI INH SCH ×2 (07:41→19:56)
[2022-10-12] MEDS: Enoxaparin 40 MG/0.4 ML SYR SUBCUT SCH (09:00)
[2022-10-12] MEDS: Clotrimazole 1% CREAM 30 gm TOPICAL SCH (09:01)
[2022-10-12] MEDS ORDERED: Remdesivir 100 mg Vial 100 MG in NS 0.9% 250 ml 230 ML IV SCH (13:00)
[2022-10-13 08:44] LABS: INR 1.21 (0.88-1.18)
[2022-10-13] MEDS: Mometasone/Formoter 200/5 MDI INH SCH ×2 (08:46→20:13)
[2022-10-13] MEDS: Albuterol/Ipratropium NEB.SOL (2.5/0.5 MG) 3 ML NEB.SOLN INH SCH (08:47)
[2022-10-13 08:57] LABS: Albumin 2.8 g/dL (3.2-5.2); Albumin/Globulin Ratio 0.6 (1-3); Calcium 8.5 mg/dL (8.6-10.3); Creatinine, Serum 0.96 mg/dL (0.51-0.95); Globulin 4.4 g/dL (2-4); Potassium 4.3 mmol/L (3.5-5.0); Total Bilirubin 0.4 mg/dL (0.2-1.0); Total Protein 7.2 g/dL (6.4-8.9); eGFR CKD-EPI 60.2 (>60)
[2022-10-13] MEDS: Enoxaparin 40 MG/0.4 ML SYR SUBCUT SCH (09:19)
[2022-10-13] MEDS: Clotrimazole 1% CREAM 30 gm TOPICAL SCH (09:20)
[2022-10-13 10:05] LABS: Magnesium 1.7 mg/dL (1.9-2.7)
[2022-10-13] MEDS ORDERED: Magnesium Sulfate 2 gm BAG 2 GM/50 ML BAG IVPB ONE (10:06)
[2022-10-13] MEDS: Albuterol HFA INHALER 8 gm MDI INH SCH ×3 (10:35→20:12)
[2022-10-13] MEDS: Remdesivir 100 mg Vial 100 MG in NS 0.9% 250 ml 230 ML IV SCH (11:09)
[2022-10-13 16:23] LABS: HDL Cholesterol 39.5 mg/dL
[2022-10-13] MEDS: cefTRIAXone 1 gm/50 mL D5W 1 GM/50 ML BAG IV SCH (20:48)
[2022-10-13] MEDS: Azithromycin 500 mg/250 ml NS 500 MG/250 ML BAG IVPB SCH (21:52)
[2022-10-14] MEDS: Albuterol HFA INHALER 8 gm MDI INH SCH ×7 (03:42→22:52)
[2022-10-14 06:59] LABS: INR 1.24 (0.88-1.18)
[2022-10-14] MEDS: Mometasone/Formoter 200/5 MDI INH SCH ×2 (07:04→20:17)
[2022-10-14 07:11] LABS: Albumin 2.8 g/dL (3.2-5.2); Albumin/Globulin Ratio 0.7 (1-3); Calcium 8.3 mg/dL (8.6-10.3); Creatinine, Serum 0.98 mg/dL (0.51-0.95); Globulin 4.2 g/dL (2-4); Potassium 4.6 mmol/L (3.5-5.0); Total Bilirubin 0.3 mg/dL (0.2-1.0); eGFR CKD-EPI 58.7 (>60)
[2022-10-14] MEDS: Remdesivir 100 mg Vial 100 MG in NS 0.9% 250 ml 230 ML IV SCH (09:31)
[2022-10-14] MEDS: Enoxaparin 40 MG/0.4 ML SYR SUBCUT SCH (09:36)
[2022-10-14] MEDS: Clotrimazole 1% CREAM 30 gm TOPICAL SCH (09:36)
[2022-10-14] MEDS: cefTRIAXone 1 gm/50 mL D5W 1 GM/50 ML BAG IV SCH (20:09)
[2022-10-14] MEDS: Azithromycin 500 mg/250 ml NS 500 MG/250 ML BAG IVPB SCH (22:42)
[2022-10-15] MEDS: Albuterol HFA INHALER 8 gm MDI INH SCH ×6 (03:14→22:46)
[2022-10-15 07:30] LABS: INR 1.26 (0.88-1.18)
[2022-10-15 07:35] LABS: Albumin 2.7 g/dL (3.2-5.2); Albumin/Globulin Ratio 0.7 (1-3); Calcium 8.1 mg/dL (8.6-10.3); Creatinine, Serum 1.06 mg/dL (0.51-0.95); Globulin 4.1 g/dL (2-4); Potassium 4.5 mmol/L (3.5-5.0); Total Bilirubin 0.2 mg/dL (0.2-1.0); Total Protein 6.8 g/dL (6.4-8.9); eGFR CKD-EPI 53.4 (>60)
[2022-10-15] MEDS: Mometasone/Formoter 200/5 MDI INH SCH ×2 (08:36→19:54)
[2022-10-15] MEDS: Enoxaparin 40 MG/0.4 ML SYR SUBCUT SCH (09:36)
[2022-10-15] MEDS: Remdesivir 100 mg Vial 100 MG in NS 0.9% 250 ml 230 ML IV SCH (09:36)
[2022-10-15] MEDS: Clotrimazole 1% CREAM 30 gm TOPICAL SCH (09:37)
[2022-10-15] MEDS ORDERED: cefTRIAXone 1 GM Q24H (ADVAN) IVPB SCH (20:30)
[2022-10-15] MEDS: Azithromycin 500 mg/250 ml NS 500 MG/250 ML BAG IVPB SCH (22:40)
[2022-10-16] MEDS: Albuterol HFA INHALER 8 gm MDI INH SCH ×3 (03:08→11:38)
[2022-10-16 06:25] LABS: INR 1.26 (0.88-1.18)
[2022-10-16 06:39] LABS: Albumin 2.7 g/dL (3.2-5.2); Albumin/Globulin Ratio 0.7 (1-3); Calcium 8.2 mg/dL (8.6-10.3); Creatinine, Serum 1.07 mg/dL (0.51-0.95); Globulin 4.1 g/dL (2-4); Magnesium 1.7 mg/dL (1.9-2.7); Potassium 4.3 mmol/L (3.5-5.0); Total Bilirubin 0.2 mg/dL (0.2-1.0); Total Protein 6.8 g/dL (6.4-8.9); eGFR CKD-EPI 52.8 (>60)
[2022-10-16] MEDS ORDERED: Magnesium Sulfate IV 3 GM in NS 0.9% 100 ml BAG 100 ML IVPB ONE (06:54)
[2022-10-16] MEDS: Mometasone/Formoter 200/5 MDI INH SCH (06:56)
[2022-10-16] MEDS ORDERED: Magnesium Sulfate 2 GM IV (Premix) IVPB ONE (08:00)
[2022-10-16] MEDS ORDERED: Magnesium Sulfate 1 GM IV 1 GM/100 ML BAG IV ONE (09:00)
[2022-10-16] MEDS: Enoxaparin 40 MG/0.4 ML SYR SUBCUT SCH (09:12)
[2022-10-16] MEDS: Clotrimazole 1% CREAM 30 gm TOPICAL SCH (09:13)
[2022-10-16 12:50] VITALS: BP 140/71
== END 2022-10-16 15:00 | disposition home or self-care (01) | DRG 177 ==
LOC: ED 05:02 → EDHOLD 05:02 → SUATTDRO 08:35 → EDHOLD 09:40 → MED 17:03 → SUATTDRO 10-12 11:42
PROVIDERS: ADMIT Internal Medicine; ATTEND Family Medicine

== ENCOUNTER 2023-01-03 08:12 | Inpatient (IN) ==
[2023-01-03] MEDS ORDERED: Magnesium Sulfate 2 gm BAG 2 GM/50 ML BAG IVPB ONE (08:20)
[2023-01-03] MEDS ORDERED: Lactated Ringers 1000 ml BAG 1,000 ML IV ONE (08:20)
[2023-01-03] MEDS ORDERED: Dexamethasone IV 4 MG/ML VIAL 1 ml VIAL IV SLOW PU ONE (08:20)
[2023-01-03] MEDS ORDERED: Cefepime 1 GM in Dextrose 1 GM/50 ML BAG IV ONE (08:33)
[2023-01-03] MEDS ORDERED: Azithromycin 500 mg/250 ml NS 500 MG/250 ML BAG IVPB ONE (08:33)
[2023-01-03] MEDS ORDERED: Albuterol/Ipratropium NEB.SOL (2.5/0.5 MG) 3 ML NEB.SOLN ONE (08:36)
[2023-01-03] MEDS: Albuterol/Ipratropium NEB.SOL (2.5/0.5 MG) 3 ML NEB.SOLN INH SCH ×4 (08:38→23:59)
[2023-01-03 08:40] LABS: Activated Partial Thrombo Time 20.9 seconds (26.0-38.0); INR 1.1 (0.83-1.13)
[2023-01-03 09:32] LABS: Albumin 2.8 g/dL (3.2-5.2); Albumin/Globulin Ratio 0.5 (1-3); Calcium 9.6 mg/dL (8.6-10.3); Creatinine, Serum 1.26 mg/dL (0.51-0.95); Globulin 6.2 g/dL (2-4); Potassium 4.5 mmol/L (3.5-5.0); Total Bilirubin 0.3 mg/dL (0.2-1.0); eGFR CKD-EPI 43.4 (>60)
[2023-01-03 09:51] LABS: Hematocrit 25.8 % (35-45); Hemoglobin 8.7 g/dL (11.5-14.3); Red Blood Count 2.87 10^6/uL (3.63-4.92)
[2023-01-03 09:52] LABS: ABS Eosinophils 0.2 10^3/uL (0.0-0.5); ABS Lymphocytes 0.4 10^3/uL (1.0-4.8); ABS Monocytes 0.7 10^3/uL (0.0-0.9); ABS Neutrophils 10.6 10^3/uL (1.5-7.6); Mean Corpuscular Hemoglobin 30.2 pg (27-33); Mean Corpuscular Hgb Conc 33.6 g/dL (31-36); Mean Corpuscular Volume 89.9 fL (80-97); Platelet Count 233 10^3/uL (150-450); Red Cell Distribution Width 15.2 % (12-17)
[2023-01-03 09:53] LABS: ABS Nucleated RBC 0.01 10^3/ul; Lymphocyte % 3.6 %; Nucleated Red Blood Cells % 0.1 /100 WBC (0.0-0.4)
[2023-01-03 10:14] LABS: High Sensitivity Troponin 1 Hr 24 pg/mL (<15)
[2023-01-03] MEDS ORDERED: Furosemide 40 mg/4 ml IV VIAL IV ONE (14:16)
[2023-01-03] MEDS ORDERED: Albuterol HFA INHALER 8 gm MDI INH PRN (14:59)
[2023-01-03] MEDS ORDERED: Magnesium Hydroxide LIQ 30 ML UDC PO PRN (14:59)
[2023-01-03] MEDS ORDERED: methylPREDNISolone SOD SUCC 40 mg/ml 1 ml VIAL IV SCH (15:00)
[2023-01-03] MEDS ORDERED: Ondansetron ODT 4 mg TAB 4 MG TAB PO PRN (15:16)
[2023-01-03 15:55] LABS: C Reactive Protein 15.7 mg/L (<8.01)
[2023-01-03] MEDS: Mometasone/Formoter 200/5 MDI INH SCH (22:45)
[2023-01-03] MEDS: methylPREDNISolone SOD SUCC 40 mg/ml 1 ml VIAL IV SCH (23:25)
[2023-01-04 07:00] LABS: Hematocrit 19.4 % (35-45); Hemoglobin 6.5 g/dL (11.5-14.3); Mean Corpuscular Hemoglobin 30.4 pg (27-33); Mean Corpuscular Hgb Conc 33.8 g/dL (31-36); Mean Corpuscular Volume 90.1 fL (80-97); Red Blood Count 2.15 10^6/uL (3.63-4.92); Red Cell Distribution Width 15.4 % (12-17); White Blood Count 13.5 10^3/uL (3.8-11.8)
[2023-01-04 07:01] LABS: ABS Lymphocytes 0.4 10^3/uL (1.0-4.8); ABS Monocytes 0.3 10^3/uL (0.0-0.9); ABS Neutrophils 12.7 10^3/uL (1.5-7.6); Lymphocyte % 2.9 %
[2023-01-04] MEDS: Albuterol/Ipratropium NEB.SOL (2.5/0.5 MG) 3 ML NEB.SOLN INH SCH ×3 (07:02→22:33)
[2023-01-04] MEDS: Mometasone/Formoter 200/5 MDI INH SCH ×2 (07:02→20:01)
[2023-01-04 07:10] LABS: Calcium 9.5 mg/dL (8.6-10.3); Creatinine, Serum 1.49 mg/dL (0.51-0.95); eGFR CKD-EPI 35.5 (>60)
[2023-01-04] MEDS ORDERED: Haloperidol 5 mg/ml SDV IV/IM 5 MG/ML AMP IM ONE ×2 (08:50)
[2023-01-04] MEDS ORDERED: methylPREDNISolone SOD SUCC 40 mg/ml 1 ml VIAL IV SCH (09:00)
[2023-01-04 09:34] LABS: Mean Platelet Volume 8.2 fL (7.5-11.2); Platelet Count 229 10^3/uL (150-450)
[2023-01-04] MEDS: methylPREDNISolone SOD SUCC 40 mg/ml 1 ml VIAL IV SCH ×2 (10:54→11:06)
[2023-01-04] MEDS: Clotrimazole 1% CREAM 30 gm TOPICAL SCH (11:11)
[2023-01-04 15:57] LABS: Hematocrit 21.9 % (35-45); Hemoglobin 7.1 g/dL (11.5-14.3)
[2023-01-05 05:56] LABS: ABS Lymphocytes 0.6 10^3/uL (1.0-4.8); ABS Monocytes 0.9 10^3/uL (0.0-0.9); ABS Neutrophils 7.4 10^3/uL (1.5-7.6); ABS Nucleated RBC 0.01 10^3/ul; Hematocrit 19.9 % (35-45); Hemoglobin 6.8 g/dL (11.5-14.3); Lymphocyte % 6.5 %; Mean Corpuscular Hemoglobin 30.5 pg (27-33); Mean Corpuscular Hgb Conc 33.9 g/dL (31-36); Mean Platelet Volume 8.1 fL (7.5-11.2); Nucleated Red Blood Cells % 0.1 /100 WBC (0.0-0.4); Platelet Count 208 10^3/uL (150-450); Red Blood Count 2.21 10^6/uL (3.63-4.92); Red Cell Distribution Width 15.6 % (12-17); White Blood Count 8.9 10^3/uL (3.8-11.8)
[2023-01-05 06:13] LABS: Creatinine, Serum 1.52 mg/dL (0.51-0.95); Potassium 4.4 mmol/L (3.5-5.0); eGFR CKD-EPI 34.7 (>60)
[2023-01-05] MEDS: Mometasone/Formoter 200/5 MDI INH SCH ×2 (07:21→20:29)
[2023-01-05] MEDS: Albuterol/Ipratropium NEB.SOL (2.5/0.5 MG) 3 ML NEB.SOLN INH SCH ×3 (07:22→22:55)
[2023-01-05 07:46] LABS: Hematocrit 19.7 % (35-45); Hemoglobin 6.8 g/dL (11.5-14.3)
[2023-01-05] MEDS: methylPREDNISolone SOD SUCC 40 mg/ml 1 ml VIAL IV SCH (08:45)
[2023-01-05] MEDS ORDERED: Furosemide 40 mg/4 ml IV VIAL IV ONE (10:39)
[2023-01-05] MEDS: Clotrimazole 1% CREAM 30 gm TOPICAL SCH (12:28)
[2023-01-05 19:20] LABS: Hematocrit 23.2 % (35-45); Hemoglobin 7.9 g/dL (11.5-14.3)
[2023-01-06 06:04] LABS: ABS Lymphocytes 0.9 10^3/uL (1.0-4.8); ABS Monocytes 0.9 10^3/uL (0.0-0.9); ABS Neutrophils 6.7 10^3/uL (1.5-7.6); Hematocrit 22.5 % (35-45); Hemoglobin 7.9 g/dL (11.5-14.3); Lymphocyte % 10.5 %; Mean Corpuscular Hemoglobin 30.5 pg (27-33); Mean Corpuscular Hgb Conc 35.2 g/dL (31-36); Mean Corpuscular Volume 86.6 fL (80-97); Mean Platelet Volume 7.8 fL (7.5-11.2); Platelet Count 210 10^3/uL (150-450); White Blood Count 8.5 10^3/uL (3.8-11.8)
[2023-01-06 06:22] LABS: Calcium 8.9 mg/dL (8.6-10.3); Creatinine, Serum 1.25 mg/dL (0.51-0.95); Potassium 3.8 mmol/L (3.5-5.0); eGFR CKD-EPI 43.8 (>60)
[2023-01-06] MEDS ORDERED: Potassium Chlor 20 meq TAB.ER PO ONE (07:09)
[2023-01-06 07:15] LABS: Magnesium 2.1 mg/dL (1.9-2.7)
[2023-01-06] MEDS: Albuterol/Ipratropium NEB.SOL (2.5/0.5 MG) 3 ML NEB.SOLN INH SCH (07:56)
[2023-01-06] MEDS: Mometasone/Formoter 200/5 MDI INH SCH ×2 (07:57→19:23)
[2023-01-06] MEDS ORDERED: Furosemide 40 mg/4 ml IV VIAL IV SLOW PU ONE (08:55)
[2023-01-06] MEDS: Clotrimazole 1% CREAM 30 gm TOPICAL SCH (09:21)
[2023-01-06] MEDS ORDERED: Albuterol/Ipratropium NEB.SOL (2.5/0.5 MG) 3 ML NEB.SOLN INH SCH ×3 (13:00→19:00)
[2023-01-07] MEDS: Albuterol/Ipratropium NEB.SOL (2.5/0.5 MG) 3 ML NEB.SOLN INH SCH ×4 (01:09→14:51)
[2023-01-07 06:12] LABS: ABS Lymphocytes 0.8 10^3/uL (1.0-4.8); ABS Monocytes 0.8 10^3/uL (0.0-0.9); ABS Neutrophils 5.5 10^3/uL (1.5-7.6); ABS Nucleated RBC 0.01 10^3/ul; Hematocrit 22.7 % (35-45); Hemoglobin 7.9 g/dL (11.5-14.3); Lymphocyte % 11.7 %; Mean Corpuscular Hgb Conc 34.6 g/dL (31-36); Mean Corpuscular Volume 86.5 fL (80-97); Mean Platelet Volume 8.2 fL (7.5-11.2); Nucleated Red Blood Cells % 0.1 /100 WBC (0.0-0.4); Platelet Count 207 10^3/uL (150-450); Red Blood Count 2.63 10^6/uL (3.63-4.92); Red Cell Distribution Width 17.2 % (12-17); White Blood Count 7.1 10^3/uL (3.8-11.8)
[2023-01-07 06:34] LABS: Albumin 2.6 g/dL (3.2-5.2); Albumin/Globulin Ratio 0.5 (1-3); Creatinine, Serum 1.08 mg/dL (0.51-0.95); Globulin 5.6 g/dL (2-4); Magnesium 1.9 mg/dL (1.9-2.7); Total Bilirubin 0.3 mg/dL (0.2-1.0); Total Protein 8.2 g/dL (6.4-8.9); eGFR CKD-EPI 52.3 (>60)
[2023-01-07] MEDS: Mometasone/Formoter 200/5 MDI INH SCH (07:17)
[2023-01-07] MEDS ORDERED: Furosemide 40 mg/4 ml IV VIAL IV SLOW PU ONE (08:12)
[2023-01-07] MEDS: Clotrimazole 1% CREAM 30 gm TOPICAL SCH (09:39)
[2023-01-07 09:58] VITALS: BP 146/66
== END 2023-01-07 13:44 | DRG 190 ==
LOC: ED 08:12 → EDHOLD 14:16 → MEDTELE 01-04 11:03 → EDHOLD 01-04 11:05 → MEDTELE 01-04 11:29
PROVIDERS: ADMIT Internal Medicine; ATTEND Internal Medicine

== ENCOUNTER 2023-04-14 02:26 | Inpatient (IN) ==
[2023-04-14] MEDS ORDERED: Albuterol/Ipratropium NEB.SOL (2.5/0.5 MG) 3 ML NEB.SOLN INH ONE (03:05)
[2023-04-14] MEDS ORDERED: Furosemide 40 mg/4 ml IV VIAL IV ONE (03:32)
[2023-04-14] MEDS ORDERED: cefTRIAXone 1 gm/50 mL D5W 1 GM/50 ML BAG IV ONE (03:32)
[2023-04-14] MEDS ORDERED: Azithromycin 500 mg/250 ml NS 500 MG/250 ML BAG IVPB ONE (03:32)
[2023-04-14 04:02] LABS: ABS Lymphocytes 0.2 10^3/uL (1.0-4.8); ABS Monocytes 0.4 10^3/uL (0.0-0.9); ABS Neutrophils 13.6 10^3/uL (1.5-7.6); Hematocrit 26.5 % (35-45); Hemoglobin 8.8 g/dL (11.5-14.3); Lymphocyte % 1.2 %; Mean Corpuscular Hemoglobin 30.7 pg (27-33); Mean Corpuscular Hgb Conc 33.3 g/dL (31-36); Mean Corpuscular Volume 92.3 fL (80-97); Mean Platelet Volume 8.7 fL (7.5-11.2); Platelet Count 197 10^3/uL (150-450); Red Blood Count 2.87 10^6/uL (3.63-4.92); Red Cell Distribution Width 16.9 % (12-17); White Blood Count 14.2 10^3/uL (3.8-11.8)
[2023-04-14 04:07] LABS: Activated Partial Thrombo Time 29.1 seconds (26.0-38.0); INR 1.38 (0.83-1.13)
[2023-04-14 04:20] LABS: Albumin 3.2 g/dL (3.2-5.2); Albumin/Globulin Ratio 0.5 (1-3); C Reactive Protein 275.6 mg/L (<8.01); Calcium 9.8 mg/dL (8.6-10.3); Creatinine, Serum 1.47 mg/dL (0.51-0.95); Globulin 6.4 g/dL (2-4); Potassium 4.4 mmol/L (3.5-5.0); Total Bilirubin 0.6 mg/dL (0.2-1.0); Total Protein 9.6 g/dL (6.4-8.9); eGFR CKD-EPI 36.1 (>60)
[2023-04-14] MEDS ORDERED: Iodixanol (CONTRAST) 320 MG/ML 100 ML SDV IV ONE (04:34)
[2023-04-14 04:44] LABS: PCO2 Arterial 33 mmHg (35-45); PO2 Arterial 75 mmHg (80-100)
[2023-04-14] MEDS ORDERED: Acetaminophen IV 1 GM/100ML 1,000 MG/100 ML BAG IV ONE (05:08)
[2023-04-14 05:37] LABS: Urine Appearance Clear; Urine Bilirubin Negative (Negative); Urine Blood 2+ (Negative); Urine Color Straw; Urine Glucose Negative (Negative); Urine Ketones Negative (Negative); Urine Nitrite Negative (Negative); Urine Protein Negative (Negative); Urine Specific Gravity 1.012 (1.002-1.030); Urine Urobilinogen Negative (Negative)
[2023-04-14 05:48] LABS: High Sensitivity Troponin 1 Hr 10 pg/mL (<15); Urine Bacteria Absent (Absent); Urine Red Blood Cell 2+(6-10/hpf) (Absent); Urine Squamous Epithelial Cell Present (Absent); Urine White Blood Cell Trace(0-5/hpf) (Absent)
[2023-04-14] MEDS ORDERED: Albuterol (2.5 MG) 0.5 % CONC 0.5 ML NEB.SOLN INH PRN (05:56)
[2023-04-14] MEDS: Heparin 5000 UNITS/ML 1 mL VIAL SUBCUT SCH ×3 (06:01→20:21)
[2023-04-14] MEDS ORDERED: Piperacillin/Tazobac 3.375 BAG 3.375 GM/100 ML BAG IV ONE (06:07)
[2023-04-14] MEDS ORDERED: Zosyn per Pharmacy NOTE FOLLOW UP SCH (07:00)
[2023-04-14] MEDS: Albuterol/Ipratropium NEB.SOL (2.5/0.5 MG) 3 ML NEB.SOLN INH SCH ×4 (07:53→19:21)
[2023-04-14] MEDS: Mometasone/Formoter 200/5 MDI INH SCH ×2 (07:53→19:21)
[2023-04-14] MEDS: ZOSYN 3.375 GM Q8H per EXTENDED INFUSION IV SCH ×2 (13:44→20:21)
[2023-04-15] MEDS: ZOSYN 3.375 GM Q8H per EXTENDED INFUSION IV SCH ×3 (04:05→20:51)
[2023-04-15 04:52] LABS: ABS Lymphocytes 0.3 10^3/uL (1.0-4.8); ABS Monocytes 0.4 10^3/uL (0.0-0.9); ABS Neutrophils 9.6 10^3/uL (1.5-7.6); Hematocrit 20.8 % (35-45); Hemoglobin 7.1 g/dL (11.5-14.3); Lymphocyte % 2.6 %; Mean Corpuscular Hemoglobin 31.6 pg (27-33); Mean Corpuscular Hgb Conc 34.2 g/dL (31-36); Mean Corpuscular Volume 92.4 fL (80-97); Mean Platelet Volume 9.2 fL (7.5-11.2); Platelet Count 185 10^3/uL (150-450); Red Blood Count 2.25 10^6/uL (3.63-4.92); Red Cell Distribution Width 17.1 % (12-17); White Blood Count 10.3 10^3/uL (3.8-11.8)
[2023-04-15 05:06] LABS: Albumin 2.7 g/dL (3.2-5.2); Albumin/Globulin Ratio 0.5 (1-3); Creatinine, Serum 1.68 mg/dL (0.51-0.95); Globulin 5.4 g/dL (2-4); Potassium 3.9 mmol/L (3.5-5.0); Total Bilirubin 0.4 mg/dL (0.2-1.0); Total Protein 8.1 g/dL (6.4-8.9); eGFR CKD-EPI 30.7 (>60)
[2023-04-15] MEDS ORDERED: cefTRIAXone 1 gm/50 mL D5W 1 GM/50 ML BAG IV SCH (05:45)
[2023-04-15] MEDS: Albuterol/Ipratropium NEB.SOL (2.5/0.5 MG) 3 ML NEB.SOLN INH SCH ×4 (05:51→19:34)
[2023-04-15] MEDS: Heparin 5000 UNITS/ML 1 mL VIAL SUBCUT SCH ×3 (05:52→21:03)
[2023-04-15 12:06] LABS: ABS Lymphocytes 0.3 10^3/uL (1.0-4.8); ABS Monocytes 0.5 10^3/uL (0.0-0.9); ABS Neutrophils 9.8 10^3/uL (1.5-7.6); ABS Nucleated RBC 0.01 10^3/ul; Hematocrit 21.8 % (35-45); Hemoglobin 7.5 g/dL (11.5-14.3); Lymphocyte % 3.1 %; Mean Corpuscular Hemoglobin 31.9 pg (27-33); Mean Corpuscular Hgb Conc 34.3 g/dL (31-36); Mean Corpuscular Volume 93.3 fL (80-97); Mean Platelet Volume 9.1 fL (7.5-11.2); Platelet Count 193 10^3/uL (150-450); Red Blood Count 2.34 10^6/uL (3.63-4.92); Red Cell Distribution Width 16.9 % (12-17); White Blood Count 10.6 10^3/uL (3.8-11.8)
[2023-04-15] MEDS: Mometasone/Formoter 200/5 MDI INH SCH ×2 (12:32→19:35)
[2023-04-16] MEDS: ZOSYN 3.375 GM Q8H per EXTENDED INFUSION IV SCH ×3 (04:04→21:32)
[2023-04-16 04:30] LABS: ABS Lymphocytes 0.4 10^3/uL (1.0-4.8); ABS Monocytes 0.7 10^3/uL (0.0-0.9); ABS Neutrophils 7.6 10^3/uL (1.5-7.6); ABS Nucleated RBC 0.01 10^3/ul; Hematocrit 22.4 % (35-45); Hemoglobin 7.6 g/dL (11.5-14.3); Mean Corpuscular Hemoglobin 31.5 pg (27-33); Mean Corpuscular Hgb Conc 33.9 g/dL (31-36); Mean Corpuscular Volume 92.6 fL (80-97); Mean Platelet Volume 8.6 fL (7.5-11.2); Nucleated Red Blood Cells % 0.1 %/100WBC (0.0-0.8); Platelet Count 179 10^3/uL (150-450); Red Blood Count 2.41 10^6/uL (3.63-4.92); White Blood Count 8.8 10^3/uL (3.8-11.8)
[2023-04-16 05:15] LABS: Calcium 8.5 mg/dL (8.6-10.3); Creatinine, Serum 1.49 mg/dL (0.51-0.95); Potassium 3.9 mmol/L (3.5-5.0); eGFR CKD-EPI 35.5 (>60)
[2023-04-16] MEDS: Heparin 5000 UNITS/ML 1 mL VIAL SUBCUT SCH ×3 (05:26→21:32)
[2023-04-16] MEDS: Albuterol/Ipratropium NEB.SOL (2.5/0.5 MG) 3 ML NEB.SOLN INH SCH ×3 (07:30→19:37)
[2023-04-16] MEDS: Mometasone/Formoter 200/5 MDI INH SCH ×2 (07:31→19:43)
[2023-04-17] MEDS: ZOSYN 3.375 GM Q8H per EXTENDED INFUSION IV SCH ×3 (04:46→21:03)
[2023-04-17] MEDS: Heparin 5000 UNITS/ML 1 mL VIAL SUBCUT SCH ×3 (06:10→21:04)
[2023-04-17 06:32] LABS: ABS Lymphocytes 0.5 10^3/uL (1.0-4.8); ABS Monocytes 1.3 10^3/uL (0.0-0.9); ABS Neutrophils 9.7 10^3/uL (1.5-7.6); Hematocrit 21.3 % (35-45); Hemoglobin 7.1 g/dL (11.5-14.3); Mean Corpuscular Hemoglobin 30.8 pg (27-33); Mean Corpuscular Hgb Conc 33.2 g/dL (31-36); Mean Corpuscular Volume 92.7 fL (80-97); Mean Platelet Volume 8.5 fL (7.5-11.2); Platelet Count 194 10^3/uL (150-450); Red Cell Distribution Width 16.6 % (12-17); White Blood Count 11.5 10^3/uL (3.8-11.8)
[2023-04-17 06:52] LABS: Calcium 8.6 mg/dL (8.6-10.3); Creatinine, Serum 1.21 mg/dL (0.51-0.95); Potassium 3.7 mmol/L (3.5-5.0); eGFR CKD-EPI 45.6 (>60)
[2023-04-17] MEDS: Mometasone/Formoter 200/5 MDI INH SCH ×2 (08:06→19:37)
[2023-04-17] MEDS: Albuterol/Ipratropium NEB.SOL (2.5/0.5 MG) 3 ML NEB.SOLN INH SCH ×3 (08:06→19:37)
[2023-04-17 13:40] LABS: Hematocrit 23.4 % (35-45); Hemoglobin 7.8 g/dL (11.5-14.3)
[2023-04-17] MEDS: Nystatin TOP POWDER 15 GM BTL TOPICAL SCH ×2 (16:08→21:04)
[2023-04-17 19:07] LABS: Hematocrit 26.4 % (35-45); Hemoglobin 9.1 g/dL (11.5-14.3)
[2023-04-18] MEDS: ZOSYN 3.375 GM Q8H per EXTENDED INFUSION IV SCH (04:26)
[2023-04-18] MEDS: Heparin 5000 UNITS/ML 1 mL VIAL SUBCUT SCH (05:03)
[2023-04-18 06:17] LABS: Hematocrit 25.7 % (35-45); Hemoglobin 8.6 g/dL (11.5-14.3)
[2023-04-18] MEDS: Mometasone/Formoter 200/5 MDI INH SCH (07:48)
[2023-04-18] MEDS: Albuterol/Ipratropium NEB.SOL (2.5/0.5 MG) 3 ML NEB.SOLN INH SCH (07:49)
[2023-04-18 10:23] VITALS: BP 141/70
[2023-04-18] MEDS: Nystatin TOP POWDER 15 GM BTL TOPICAL SCH (10:35)
== END 2023-04-18 12:25 | DRG 871 ==
LOC: ED 02:26 → EDHOLD 05:32 → SUATTDRO 05:32 → ICU 11:38 → SSU 04-16 15:29
PROVIDERS: ADMIT Internal Medicine; ATTEND Internal Medicine

== ENCOUNTER 2023-11-11 15:31 | Inpatient (IN) ==
[2023-11-11 15:58] LABS: PCO2 Arterial 41 mmHg (35-45); PO2 Arterial 100 mmHg (80-100)
[2023-11-11 16:09] LABS: Hematocrit 32.9 % (35-45); Hemoglobin 10.9 g/dL (11.5-14.3); Mean Corpuscular Hemoglobin 31.2 pg (27-33); Mean Corpuscular Hgb Conc 33.1 g/dL (31-36); Mean Corpuscular Volume 94.3 fL (80-97); Mean Platelet Volume 11.1 fL (7.5-11.2); Platelet Count 229 10^3/uL (150-450); Red Blood Count 3.49 10^6/uL (3.63-4.92); Red Cell Distribution Width 15.2 % (12-17); White Blood Count 12.2 10^3/uL (3.8-11.8)
[2023-11-11 16:50] LABS: Albumin 2.9 g/dL (3.2-5.2); Albumin/Globulin Ratio 0.8 (1-3); Calcium 9.2 mg/dL (8.6-10.3); Creatinine, Serum 1.42 mg/dL (0.51-0.95); Globulin 3.6 g/dL (2-4); Potassium 5.5 mmol/L (3.5-5.0); Total Protein 6.5 g/dL (6.4-8.9); eGFR CKD-EPI 37.4 (>60)
[2023-11-11] MEDS: Azithromycin 500 mg/250 ml NS 500 MG/250 ML BAG IVPB ONE (17:13)
[2023-11-11] MEDS: cefTRIAXone 1 gm/50 mL D5W 1 GM/50 ML BAG IV ONE (17:14)
[2023-11-11] MEDS ORDERED: Albuterol HFA INHALER 8 gm MDI INH PRN (17:46)
[2023-11-11] MEDS ORDERED: Magnesium Hydroxide LIQ 30 ML UDC PO PRN (17:46)
[2023-11-11 17:54] LABS: High Sensitivity Troponin 1 Hr 18 pg/mL (<15)
[2023-11-11 18:07] LABS: ABS Lymphocytes 0.1 10^3/uL (1.0-4.8); ABS Monocytes 0.6 10^3/uL (0.0-0.9); ABS Neutrophils 11.5 10^3/uL (1.5-7.6)
[2023-11-11 18:35] LABS: C Reactive Protein 289.64 mg/L (<8.01); Magnesium 2.3 mg/dL (1.9-2.7)
[2023-11-11] MEDS: Bumetanide IV 0.25 MG/ML 4 ml VIAL (1 mg) IV SLOW PU ONE ×2 (18:53→18:57)
[2023-11-11] MEDS ORDERED: Succinylcholine 200 mg VIAL 20 mg/ml 10 ml VIAL (200 mg) ONE (19:15)
[2023-11-11] MEDS ORDERED: Rocuronium 50 mg VIAL 10 mg/ml 5 ml VIAL (50 mg) ONE (19:15)
[2023-11-11] MEDS ORDERED: Propofol 10 mg/ml 100 ML BTL 1,000 MG/100 ML BTL ONE (19:17)
[2023-11-11] MEDS: Etomidate 20 mg/10 ml 2 MG/ML 10 ml VIAL IV ONE (19:30)
[2023-11-11] MEDS: Succinylcholine 200 mg VIAL 20 mg/ml 10 ml VIAL (200 mg) IV ONE (19:31)
[2023-11-11] MEDS: Propofol 10 mg/ml 100 ML BTL 1,000 MG/100 ML BTL IV SCH ×4 (19:36→21:03)
[2023-11-11] MEDS: Midazolam 2 mg/2 ml VIAL 1 mg/ml 2 ml VIAL (2 mg) IV SLOW PU ONE (19:37)
[2023-11-11] MEDS: Midazolam 10 mg/10 ml VIAL 1 mg/ml 10 ml VIAL (10 mg) IV SLOW PU ONE (19:47)
[2023-11-11] MEDS: Midazolam 2 mg/2 ml VIAL 1 mg/ml 2 ml VIAL (2 mg) IV SLOW PU PRN (20:20)
[2023-11-11] MEDS: Norepinephrine 4 MG/250mL D5W 4,000 MCG/250 ML BAG IV ONE (20:47)
[2023-11-11] MEDS: Norepinephrine 4 MG/250mL D5W 4,000 MCG/250 ML BAG IV SCH (20:50)
[2023-11-11] MEDS ORDERED: Norepinephrine 4 MG/250mL NS 4,000 MCG/250 ML BAG IV SCH (21:00)
[2023-11-11] MEDS: fentaNYL 100 mcg/2 ml 50 MCG/ML VIAL IV SLOW PU PRN (21:50)
[2023-11-11] MEDS: Heparin 5000 UNITS/ML 1 mL VIAL SUBCUT SCH (21:51)
[2023-11-11] MEDS: Chlorhexidine MOUTHWASH 0.12% 15 ML UDC TOPICAL SCH (21:51)
[2023-11-11] MEDS: Famotidine IV 10 MG/ML 2 ml VIAL (20 mg) IV SLOW PU SCH (22:00)
[2023-11-11] MEDS: Lactated Ringers 1000 ml BAG 1,000 ML IV SCH (22:02)
[2023-11-11 22:18] LABS: Activated Partial Thrombo Time 16.6 seconds (26.0-38.0)
[2023-11-11 22:20] LABS: INR 1.15 (0.83-1.13)
[2023-11-12] MEDS: Midazolam PREMIXBAG 1 MG/ML NS 100 ML IV SCH (00:45)
[2023-11-12 04:20] LABS: Calcium 8.5 mg/dL (8.6-10.3); Creatinine, Serum 1.8 mg/dL (0.51-0.95); Magnesium 2.2 mg/dL (1.9-2.7); Potassium 5.6 mmol/L (3.5-5.0); eGFR CKD-EPI 28.1 (>60)
[2023-11-12 04:34] LABS: Hematocrit 27.1 % (35-45); Hemoglobin 9.1 g/dL (11.5-14.3); Mean Corpuscular Hemoglobin 31.4 pg (27-33); Mean Corpuscular Hgb Conc 33.4 g/dL (31-36); Mean Platelet Volume 10.2 fL (7.5-11.2); Platelet Count 226 10^3/uL (150-450); Red Blood Count 2.88 10^6/uL (3.63-4.92); Red Cell Distribution Width 15.3 % (12-17); White Blood Count 21.8 10^3/uL (3.8-11.8)
[2023-11-12 04:57] LABS: ABS Basophils 0.1 10^3/uL (0.0-0.1); ABS Lymphocytes 0.2 10^3/uL (1.0-4.8); ABS Monocytes 0.9 10^3/uL (0.0-0.9); ABS Neutrophils 20.6 10^3/uL (1.5-7.6); Lymphocyte % 0.8 %
[2023-11-12 05:23] LABS: Calcium 8.4 mg/dL (8.6-10.3); Creatinine, Serum 1.99 mg/dL (0.51-0.95); Magnesium 2.2 mg/dL (1.9-2.7); Potassium 5.6 mmol/L (3.5-5.0); eGFR CKD-EPI 24.9 (>60)
[2023-11-12] MEDS: CMCS: FLUTICAS/UMECLI/VILANT 200-62.5-25 MDI (NF) INH SCH (07:14)
[2023-11-12] MEDS ORDERED: Vancomycin per Pharmacy 1 EA NOTE FOLLOW UP SCH (08:00)
[2023-11-12] MEDS: Lactated Ringers 1000 ml BAG 1,000 ML IV ONE ×2 (08:02→15:09)
[2023-11-12] MEDS: Acetaminophen IV 1 GM/100ML 1,000 MG/100 ML BAG IV PRN (08:24)
[2023-11-12] MEDS: CALCIUM GLUCONATE 1GM/50ML NS 1 GM/50 ML BAG IV ONE (08:25)
[2023-11-12] MEDS: PHENYLEPHRINE DRIP IVPREMIX 50 MG/250 ML BAG IV SCH (08:26)
[2023-11-12] MEDS: Digoxin IV 0.5 MG/2 ML AMP (0.25 MG/ML) IV SLOW PU ONE (08:31)
[2023-11-12] MEDS: fentaNYL 100 mcg/2 ml 50 MCG/ML VIAL IV SLOW PU ONE (08:34)
[2023-11-12] MEDS: fentaNYL 100 mcg/2 ml 50 MCG/ML VIAL ONE (08:34)
[2023-11-12] MEDS: Acetaminophen IV 1 GM/100ML 1,000 MG/100 ML BAG IV ONE (08:35)
[2023-11-12] MEDS: Vancomycin 1,500 MG in NS 0.9% 250 ml 250 ML IVPB ONE (08:38)
[2023-11-12] MEDS: fentaNYL INFUSION 50 mcg/mL VL 2,500 MCG/50 ML VIAL IV SCH ×2 (08:51→11:42)
[2023-11-12] MEDS ORDERED: .Amiodarone 24HR ONLY IV Protocol Order Note IV ONE (10:03)
[2023-11-12] MEDS: Amiodarone 150 mg IVPREMIX 150 MG/100 ML BAG IV ONE (10:13)
[2023-11-12] MEDS: Amiodarone 360 MG IVPREMIX 360 MG/200 ML BAG IV SCH ×2 (10:14→16:42)
[2023-11-12 10:25] LABS: PCO2 Arterial 52 mmHg (35-45); PO2 Arterial 192 mmHg (80-100)
[2023-11-12] MEDS: Amiodarone IV 150 mg/3 ml VIAL ONE (11:02)
[2023-11-12] MEDS: Amiodarone 360 MG IVPREMIX 360 MG/200 ML BAG IV ONE (11:02)
[2023-11-12] MEDS: Dextrose 50% Syringe 50 ml 25 GM/50 ML SYRINGE IV PUSH ONE (11:03)
[2023-11-12] MEDS ORDERED: Zosyn per Pharmacy NOTE FOLLOW UP SCH (12:00)
[2023-11-12] MEDS: ZOSYN 3.375 GM x ONE DOSE over 30 miuntes IV (13:16)
[2023-11-12 14:10] LABS: Albumin 2.2 g/dL (3.2-5.2); Albumin/Globulin Ratio 0.8 (1-3); Calcium 8.2 mg/dL (8.6-10.3); Creatinine, Serum 2.1 mg/dL (0.51-0.95); Globulin 2.7 g/dL (2-4); Potassium 5.5 mmol/L (3.5-5.0); Total Bilirubin 0.6 mg/dL (0.2-1.0); Total Protein 4.9 g/dL (6.4-8.9); eGFR CKD-EPI 23.4 (>60)
[2023-11-12 17:21] LABS: PCO2 Arterial 45 mmHg (35-45); PO2 Arterial 173 mmHg (80-100)
[2023-11-12] MEDS: Dextran 70/Hypromellose Tears Eye Drops 15 ml BTL (for Artificials Tears) BOTH EYES PRN (17:27)
[2023-11-12] MEDS: ZOSYN 3.375 GM Q12H per EXTENDED INFUSION IV SCH (17:38)
[2023-11-12] MEDS ORDERED: cefTRIAXone 1 gm/50 mL D5W 1 GM/50 ML BAG IV SCH (17:45)
[2023-11-12] MEDS ORDERED: Azithromycin 500 mg/250 ml NS 500 MG/250 ML BAG IVPB SCH (18:00)
[2023-11-12 18:14] LABS: Creatinine, Serum 2.16 mg/dL (0.51-0.95); Potassium 5.5 mmol/L (3.5-5.0); eGFR CKD-EPI 22.6 (>60)
[2023-11-12] MEDS ORDERED: Dextrose 50% Syringe 50 ml 25 GM/50 ML SYRINGE IV PUSH PRN (18:20)
[2023-11-12] MEDS: Famotidine IV 10 MG/ML 2 ml VIAL (20 mg) IV SLOW PU SCH (21:29)
[2023-11-13 04:58] LABS: Hematocrit 29.4 % (35-45); Hemoglobin 9.5 g/dL (11.5-14.3); Mean Corpuscular Hemoglobin 30.5 pg (27-33); Mean Corpuscular Hgb Conc 32.1 g/dL (31-36); Mean Platelet Volume 10.7 fL (7.5-11.2); Platelet Count 243 10^3/uL (150-450); Red Cell Distribution Width 15.9 % (12-17); White Blood Count 21.9 10^3/uL (3.8-11.8)
[2023-11-13] MEDS: Vancomycin Random Level NOTE FOLLOW UP ONE (05:28)
[2023-11-13 06:26] LABS: Calcium 8.6 mg/dL (8.6-10.3); Creatinine, Serum 2.27 mg/dL (0.51-0.95); Magnesium 2.2 mg/dL (1.9-2.7); Phosphorus 4.1 mg/dL (2.5-5.0); Potassium 5.4 mmol/L (3.5-5.0); Uric Acid 7.9 mg/dL (2.3-6.6); Vancomycin Random 15.2 mcg/mL; eGFR CKD-EPI 21.3 (>60)
[2023-11-13 06:31] LABS: ABS Basophils 0.1 10^3/uL (0.0-0.1); ABS Lymphocytes 0.2 10^3/uL (1.0-4.8); ABS Neutrophils 20.5 10^3/uL (1.5-7.6); ABS Nucleated RBC 0.01 10^3/ul; Lymphocyte % 1.1 %
[2023-11-13] MEDS ORDERED: Polyethylene Glycol 3350 17 GM PACKET PO PRN (08:04)
[2023-11-13] MEDS: cefTRIAXone 2 gm/50 mL D5W 2 GM/50 ML BAG IV SCH (16:53)
[2023-11-13 18:07] LABS: Calcium 8.5 mg/dL (8.6-10.3); Creatinine, Serum 2.17 mg/dL (0.51-0.95); Potassium 5.5 mmol/L (3.5-5.0); eGFR CKD-EPI 22.5 (>60)
[2023-11-14 04:33] LABS: Hematocrit 24.9 % (35-45); Hemoglobin 8.4 g/dL (11.5-14.3); Mean Corpuscular Hemoglobin 31.2 pg (27-33); Mean Corpuscular Hgb Conc 33.6 g/dL (31-36); Mean Corpuscular Volume 92.8 fL (80-97); Mean Platelet Volume 10.6 fL (7.5-11.2); Platelet Count 208 10^3/uL (150-450); Red Blood Count 2.69 10^6/uL (3.63-4.92); Red Cell Distribution Width 15.7 % (12-17); White Blood Count 27.1 10^3/uL (3.8-11.8)
[2023-11-14 04:53] LABS: Calcium 8.3 mg/dL (8.6-10.3); Creatinine, Serum 2.03 mg/dL (0.51-0.95); Magnesium 2.1 mg/dL (1.9-2.7); eGFR CKD-EPI 24.4 (>60)
[2023-11-14 07:05] LABS: ABS Lymphocytes 0.8 10^3/uL (1.0-4.8); ABS Monocytes 0.6 10^3/uL (0.0-0.9); ABS Neutrophils 25.6 10^3/uL (1.5-7.6); ABS Nucleated RBC 0.02 10^3/ul; Eosinophil % 0.1 %; Lymphocyte % 3.1 %; Nucleated Red Blood Cells % 0.1 %/100WBC (0.0-0.8)
[2023-11-14] MEDS ORDERED: Vancomycin per Pharmacy 1 EA NOTE FOLLOW UP SCH (09:00)
[2023-11-14] MEDS ORDERED: Midazolam 5 mg/5 ml VIAL 1 mg/ml 5 ml VIAL (5 mg) ONE (09:22)
[2023-11-14] MEDS ORDERED: Naloxone 0.4 mg VIAL 0.4 mg/ml 1 ml VIAL ONE (09:24)
[2023-11-14] MEDS ORDERED: Flumazenil 0.5 mg/5 ml 0.1 MG/ML 5 ml VIAL ONE (09:24)
[2023-11-14] MEDS: Midazolam 10 mg/10 ml VIAL 1 mg/ml 10 ml VIAL (10 mg) IV SLOW PU ONE (09:58)
[2023-11-14] MEDS: Vancomycin 1000 MG in NS 0.9% 250 ML IVPB ONE (10:02)
[2023-11-14] MEDS: Polyethylene Glycol 3350 17 GM PACKET PO SCH (16:32)
[2023-11-14] MEDS: Digoxin LIQ ORALSYR 0.05 MG/ML 1 ML PO SCH (16:46)
[2023-11-15 05:41] LABS: Hematocrit 24.5 % (35-45); Hemoglobin 8.4 g/dL (11.5-14.3); Mean Corpuscular Hemoglobin 31.2 pg (27-33); Mean Corpuscular Hgb Conc 34.1 g/dL (31-36); Mean Corpuscular Volume 91.6 fL (80-97); Mean Platelet Volume 10.3 fL (7.5-11.2); Platelet Count 185 10^3/uL (150-450); Red Blood Count 2.67 10^6/uL (3.63-4.92); Red Cell Distribution Width 15.4 % (12-17); Urine Appearance Clear; Urine Bilirubin Negative (Negative); Urine Blood Negative (Negative); Urine Color Light-Yellow; Urine Glucose 1+ (>=70 mg/dL) (Negative); Urine Ketones Negative (Negative); Urine Nitrite Negative (Negative); Urine Protein Trace (Negative); Urine Specific Gravity 1.018 (1.002-1.030); Urine Urobilinogen Negative (Negative); Urine pH 5.5 (5.0-8.0); White Blood Count 24.3 10^3/uL (3.8-11.8)
[2023-11-15 06:00] LABS: Calcium 8.3 mg/dL (8.6-10.3); Creatinine, Serum 1.49 mg/dL (0.51-0.95); Magnesium 1.9 mg/dL (1.9-2.7); Potassium 4.9 mmol/L (3.5-5.0); Vancomycin Random 15.8 mcg/mL; eGFR CKD-EPI 35.3 (>60)
[2023-11-15] MEDS: Vancomycin Random Level NOTE FOLLOW UP ONE (06:12)
[2023-11-15 07:22] LABS: ABS Basophils 0.1 10^3/uL (0.0-0.1); ABS Lymphocytes 0.4 10^3/uL (1.0-4.8); ABS Monocytes 0.8 10^3/uL (0.0-0.9); ABS Neutrophils 23.1 10^3/uL (1.5-7.6); ABS Nucleated RBC 0.01 10^3/ul; Eosinophil % 0.1 %; Lymphocyte % 1.7 %; Nucleated Red Blood Cells % 0.1 %/100WBC (0.0-0.8)
[2023-11-15] MEDS: Metoprolol Tartrate 5 mg VIAL 5 ml VIAL (1 mg/ml) IV ONE (09:25)
[2023-11-15 09:55] LABS: Resp Rate 22
[2023-11-15 09:56] LABS: PCO2 Arterial 36 mmHg (35-45); PO2 Arterial 93 mmHg (80-100)
[2023-11-15] MEDS: Metoprolol Tartrate 5 mg VIAL 5 ml VIAL (1 mg/ml) ONE (10:14)
[2023-11-15] MEDS: Dexmedetomidine 1,000 MCG in NS 0.9% 250 ml 240 ML IV SCH (11:19)
[2023-11-15] MEDS: Vancomycin 500 MG in NS 0.9% 250 ML IVPB ONE (14:48)
[2023-11-15] MEDS ORDERED: Immune Globulin IV Order (CPOE ENTRY PROTOCOL) IV SCH (15:00)
[2023-11-15] MEDS: [UNRECOGNIZED DRUG - OTHER] IV ONE (17:21)
[2023-11-15] MEDS: IMMUNE GLOBULIN IV ONE (17:21)
[2023-11-15] MEDS: Lactated Ringers 1000 ml BAG 1,000 ML IV ONE ×2 (18:52→19:04)
[2023-11-16 04:17] LABS: Hematocrit 19.5 % (35-45); Hemoglobin 6.5 g/dL (11.5-14.3); Mean Corpuscular Hemoglobin 30.6 pg (27-33); Mean Corpuscular Hgb Conc 33.2 g/dL (31-36); Mean Corpuscular Volume 92.3 fL (80-97); Platelet Count 148 10^3/uL (150-450); Red Blood Count 2.11 10^6/uL (3.63-4.92); Red Cell Distribution Width 15.1 % (12-17); White Blood Count 19.8 10^3/uL (3.8-11.8)
[2023-11-16 04:37] LABS: Creatinine, Serum 1.32 mg/dL (0.51-0.95); Magnesium 1.9 mg/dL (1.9-2.7); Potassium 4.6 mmol/L (3.5-5.0); Vancomycin Random 14.7 mcg/mL; eGFR CKD-EPI 40.8 (>60)
[2023-11-16 05:47] LABS: ABS Eosinophils 0.1 10^3/uL (0.0-0.5); ABS Lymphocytes 0.6 10^3/uL (1.0-4.8); ABS Neutrophils 18.2 10^3/uL (1.5-7.6); Eosinophil % 0.7 %; Lymphocyte % 2.8 %
[2023-11-16] MEDS: Vancomycin Random Level NOTE FOLLOW UP ONE (06:01)
[2023-11-16] MEDS: Vancomycin 750 MG in NS 0.9% 250 ML IVPB SCH (09:38)
[2023-11-16 09:51] LABS: Hematocrit 22.2 % (35-45); Hemoglobin 7.3 g/dL (11.5-14.3); Mean Corpuscular Hemoglobin 30.5 pg (27-33); Mean Corpuscular Hgb Conc 32.8 g/dL (31-36); Mean Platelet Volume 10.1 fL (7.5-11.2); Platelet Count 149 10^3/uL (150-450); Red Blood Count 2.39 10^6/uL (3.63-4.92); Red Cell Distribution Width 15.1 % (12-17)
[2023-11-16 10:28] LABS: ABS Lymphocytes 1.1 10^3/ul (1.0-4.8); ABS Monocytes 0.8 10^3/ul (0.0-0.9); ABS Neutrophils 19.1 10^3/ul (1.5-7.6); Anisocytosis 2+; Polychromasia 1+
[2023-11-16] MEDS: Immune Glob 10%-20GM GAMMAGLIQ 40 GM in Premix IV 0 ML IV ONE (11:49)
[2023-11-16] MEDS: Midazolam 2 mg/2 ml VIAL 1 mg/ml 2 ml VIAL (2 mg) IV SLOW PU PRN (23:55)
[2023-11-17] MEDS: fentaNYL 100 mcg/2 ml 50 MCG/ML VIAL IV SLOW PU PRN (01:01)
[2023-11-17 04:29] LABS: Hematocrit 19.2 % (35-45); Hemoglobin 6.5 g/dL (11.5-14.3); Mean Corpuscular Hgb Conc 33.7 g/dL (31-36); Platelet Count 162 10^3/uL (150-450); Red Blood Count 2.09 10^6/uL (3.63-4.92); Red Cell Distribution Width 14.3 % (12-17); White Blood Count 19.8 10^3/uL (3.8-11.8)
[2023-11-17 04:57] LABS: ABS Lymphocytes 0.4 10^3/uL (1.0-4.8); ABS Monocytes 0.9 10^3/uL (0.0-0.9); ABS Neutrophils 18.4 10^3/uL (1.5-7.6); ABS Nucleated RBC 0.04 10^3/ul; Eosinophil % 0.2 %; Lymphocyte % 2.2 %; Nucleated Red Blood Cells % 0.2 %/100WBC (0.0-0.8); RBC Morphology Normal (Normal)
[2023-11-17 05:20] LABS: Calcium 7.9 mg/dL (8.6-10.3); Creatinine, Serum 0.96 mg/dL (0.51-0.95); Magnesium 1.7 mg/dL (1.9-2.7); Potassium 4.4 mmol/L (3.5-5.0); eGFR CKD-EPI 59.8 (>60)
[2023-11-17] MEDS: Magnesium Sulfate 2 gm BAG 2 GM/50 ML BAG IVPB ONE (07:34)
[2023-11-17 08:04] LABS: Hematocrit 21.2 % (35-45); Hemoglobin 7.2 g/dL (11.5-14.3)
[2023-11-17] MEDS: Immune Glob 10%-20GM GAMMAGLIQ 20 GM, Immune Glob 10%-10GM GAMMAGLIQ 10 GM, Immune Glob... IV ONE (11:00)
[2023-11-18 05:37] LABS: Hematocrit 12.4 % (35-45); Hemoglobin 4.1 g/dL (11.5-14.3); Mean Corpuscular Hemoglobin 30.6 pg (27-33); Mean Corpuscular Hgb Conc 33.2 g/dL (31-36); Mean Corpuscular Volume 92.3 fL (80-97); Mean Platelet Volume 9.9 fL (7.5-11.2); Platelet Count 261 10^3/uL (150-450); Red Blood Count 1.34 10^6/uL (3.63-4.92); Red Cell Distribution Width 14.3 % (12-17); White Blood Count 26.2 10^3/uL (3.8-11.8)
[2023-11-18 05:53] LABS: Calcium 8.4 mg/dL (8.6-10.3); Creatinine, Serum 0.85 mg/dL (0.51-0.95); Potassium 4.5 mmol/L (3.5-5.0); eGFR CKD-EPI 69.2 (>60)
[2023-11-18 06:05] LABS: Hematocrit 21.4 % (35-45); Hemoglobin 7.3 g/dL (11.5-14.3)
[2023-11-18 07:30] LABS: ABS Basophils 0.1 10^3/uL (0.0-0.1); ABS Lymphocytes 0.5 10^3/uL (1.0-4.8); ABS Monocytes 1.4 10^3/uL (0.0-0.9); ABS Neutrophils 24.2 10^3/uL (1.5-7.6); ABS Nucleated RBC 0.09 10^3/ul; Eosinophil % 0.2 %; Lymphocyte % 1.7 %; Nucleated Red Blood Cells % 0.3 %/100WBC (0.0-0.8)
[2023-11-18 09:55] LABS: Mean Corpuscular Hemoglobin 30.5 pg (27-33); Mean Corpuscular Hgb Conc 32.7 g/dL (31-36); Mean Corpuscular Volume 93.3 fL (80-97); Mean Platelet Volume 10.7 fL (7.5-11.2); Platelet Count 266 10^3/uL (150-450); Red Blood Count 2.37 10^6/uL (3.63-4.92); Red Cell Distribution Width 14.9 % (12-17); White Blood Count 21.7 10^3/uL (3.8-11.8)
[2023-11-18] MEDS: Enoxaparin 40 MG/0.4 ML SYR SUBCUT SCH (21:39)
[2023-11-19 05:12] LABS: eGFR CKD-EPI 69.2 (>60)
[2023-11-19 06:45] LABS: Hematocrit 18.6 % (35-45); Hemoglobin 6.3 g/dL (11.5-14.3); Mean Corpuscular Hemoglobin 31.7 pg (27-33); Mean Corpuscular Volume 93.2 fL (80-97); Mean Platelet Volume 9.8 fL (7.5-11.2); Platelet Count 292 10^3/uL (150-450); Red Blood Count 1.99 10^6/uL (3.63-4.92); Red Cell Distribution Width 14.4 % (12-17); White Blood Count 20.4 10^3/uL (3.8-11.8)
[2023-11-19 07:56] LABS: ABS Lymphocytes 0.8 10^3/uL (1.0-4.8); ABS Monocytes 1.5 10^3/uL (0.0-0.9); ABS Neutrophils 18.1 10^3/uL (1.5-7.6); ABS Nucleated RBC 0.05 10^3/ul; Anisocytosis 1+; Eosinophil % 0.1 %; Lymphocyte % 3.8 %; Nucleated Red Blood Cells % 0.2 %/100WBC (0.0-0.8)
[2023-11-19 08:08] LABS: Immature Retic Fraction 0.66
[2023-11-19 08:35] LABS: C Reactive Protein 69.87 mg/L (<8.01); Calcium 8.5 mg/dL (8.6-10.3); Creatinine, Serum 0.85 mg/dL (0.51-0.95); Magnesium 1.9 mg/dL (1.9-2.7); Potassium 4.4 mmol/L (3.5-5.0)
[2023-11-19 08:53] LABS: Hematocrit for Retic CNT 18.6 % (35-45); RBC Retic Count 1.99 10^6/ul (3.63-4.92)
[2023-11-19 08:55] LABS: Ferritin 1053.4 ng/mL (11-307)
[2023-11-19] MEDS: Furosemide 40 mg/4 ml IV VIAL IV SLOW PU ONE (08:57)
[2023-11-19] MEDS: Furosemide 40 mg/4 ml IV VIAL ONE (08:57)
[2023-11-19] MEDS: Vancomycin Trough Check NOTE FOLLOW UP ONE (08:58)
[2023-11-19 09:53] LABS: Hematocrit 18.4 % (35-45); Mean Corpuscular Hemoglobin 30.4 pg (27-33); Mean Corpuscular Hgb Conc 32.5 g/dL (31-36); Mean Corpuscular Volume 93.6 fL (80-97); Mean Platelet Volume 9.8 fL (7.5-11.2); Platelet Count 296 10^3/uL (150-450); Red Blood Count 1.97 10^6/uL (3.63-4.92); Red Cell Distribution Width 14.2 % (12-17)
[2023-11-19 10:23] LABS: ABS Basophils 0.1 10^3/uL (0.0-0.1); ABS Lymphocytes 0.7 10^3/uL (1.0-4.8); ABS Monocytes 1.7 10^3/uL (0.0-0.9); ABS Neutrophils 17.5 10^3/uL (1.5-7.6); ABS Nucleated RBC 0.01 10^3/ul; Eosinophil % 0.1 %; Lymphocyte % 3.5 %; Nucleated Red Blood Cells % 0.1 %/100WBC (0.0-0.8)
[2023-11-19 10:24] LABS: RBC Morphology Normal (Normal)
[2023-11-19] MEDS: CMCS:FLUTICAS/UMECLI/VILANT 200-62.5-25 MDI (NF) INH SCH (12:58)
[2023-11-19] MEDS: Alteplase (CATHFLO) 2 MG VIAL IV ONE (16:58)
[2023-11-19] MEDS: Digoxin IV 0.5 MG/2 ML AMP (0.25 MG/ML) IV SLOW PU SCH (17:09)
[2023-11-19 17:19] LABS: Calcium 8.5 mg/dL (8.6-10.3); Potassium 4.1 mmol/L (3.5-5.0)
[2023-11-19 17:52] LABS: Creatinine, Serum 0.83 mg/dL (0.51-0.95); eGFR CKD-EPI 71.2 (>60)
[2023-11-19 21:16] LABS: Hematocrit 22.8 % (35-45); Hemoglobin 7.7 g/dL (11.5-14.3); Mean Corpuscular Hemoglobin 31.2 pg (27-33); Mean Corpuscular Volume 91.8 fL (80-97); Mean Platelet Volume 9.3 fL (7.5-11.2); Platelet Count 328 10^3/uL (150-450); Red Blood Count 2.48 10^6/uL (3.63-4.92); Red Cell Distribution Width 14.5 % (12-17); White Blood Count 23.4 10^3/uL (3.8-11.8)
[2023-11-19 22:33] LABS: ABS Basophils 0.1 10^3/uL (0.0-0.1); ABS Lymphocytes 0.7 10^3/uL (1.0-4.8); ABS Monocytes 1.8 10^3/uL (0.0-0.9); ABS Neutrophils 20.7 10^3/uL (1.5-7.6); ABS Nucleated RBC 0.06 10^3/ul; Nucleated Red Blood Cells % 0.3 %/100WBC (0.0-0.8)
[2023-11-20] MEDS: Metoprolol Tartrate 5 mg VIAL 5 ml VIAL (1 mg/ml) IV PRN
[2023-11-20] MEDS: OLANZapine 5 mg TAB *ODT PO ONE (01:55)
[2023-11-20 04:08] LABS: Hematocrit 20.5 % (35-45); Mean Corpuscular Hemoglobin 31.4 pg (27-33); Mean Corpuscular Hgb Conc 34.3 g/dL (31-36); Mean Corpuscular Volume 91.5 fL (80-97); Mean Platelet Volume 9.4 fL (7.5-11.2); Platelet Count 321 10^3/uL (150-450); Red Blood Count 2.24 10^6/uL (3.63-4.92); Red Cell Distribution Width 14.8 % (12-17); White Blood Count 21.8 10^3/uL (3.8-11.8)
[2023-11-20 04:16] LABS: INR 1.21 (0.85-1.14)
[2023-11-20 04:54] LABS: Calcium 8.1 mg/dL (8.6-10.3); Creatinine, Serum 0.85 mg/dL (0.51-0.95); Magnesium 1.6 mg/dL (1.9-2.7); eGFR CKD-EPI 69.2 (>60)
[2023-11-20 07:45] LABS: ABS Lymphocytes 0.8 10^3/uL (1.0-4.8); ABS Monocytes 1.9 10^3/uL (0.0-0.9); ABS Nucleated RBC 0.04 10^3/ul; Lymphocyte % 3.8 %; Nucleated Red Blood Cells % 0.2 %/100WBC (0.0-0.8)
[2023-11-20] MEDS: Polyethylene Glycol 3350 17 GM PACKET PO SCH (10:13)
[2023-11-20] MEDS: Magnesium Sulfate 2 gm BAG 2 GM/50 ML BAG IVPB ONE (10:30)
[2023-11-20] MEDS: Pantoprazole VIAL 40 MG VIAL IV SCH (10:30)
[2023-11-20] MEDS: Metoprolol Tartrate 5 mg VIAL 5 ml VIAL (1 mg/ml) IV SCH (10:30)
[2023-11-20] MEDS: Vancomycin 500 MG in NS 0.9% 250 ML IVPB SCH (12:22)
[2023-11-20 15:32] LABS: Hematocrit 20.7 % (35-45); Hemoglobin 7.1 g/dL (11.5-14.3); Mean Corpuscular Hemoglobin 31.3 pg (27-33); Mean Corpuscular Hgb Conc 34.2 g/dL (31-36); Mean Corpuscular Volume 91.7 fL (80-97); Mean Platelet Volume 9.3 fL (7.5-11.2); Platelet Count 368 10^3/uL (150-450); Red Blood Count 2.26 10^6/uL (3.63-4.92); Red Cell Distribution Width 15.5 % (12-17); White Blood Count 22.5 10^3/uL (3.8-11.8)
[2023-11-20 15:59] LABS: ABS Lymphocytes 0.7 10^3/uL (1.0-4.8); ABS Monocytes 1.9 10^3/uL (0.0-0.9); ABS Neutrophils 19.9 10^3/uL (1.5-7.6); ABS Nucleated RBC 0.06 10^3/ul; Lymphocyte % 3.1 %; Nucleated Red Blood Cells % 0.3 %/100WBC (0.0-0.8); RBC Morphology Normal (Normal)
[2023-11-20] MEDS: Albuterol/Ipratropium NEB.SOL (2.5/0.5 MG) 3 ML NEB.SOLN INH PRN (19:30)
[2023-11-21 04:55] LABS: Hematocrit 20.2 % (35-45); Hemoglobin 6.8 g/dL (11.5-14.3); Mean Corpuscular Hemoglobin 31.1 pg (27-33); Mean Corpuscular Hgb Conc 33.7 g/dL (31-36); Mean Corpuscular Volume 92.2 fL (80-97); Platelet Count 400 10^3/uL (150-450); Red Cell Distribution Width 15.3 % (12-17); White Blood Count 21.9 10^3/uL (3.8-11.8)
[2023-11-21] MEDS: Magnesium Sulfate 2 gm BAG 2 GM/50 ML BAG IVPB ONE (05:21)
[2023-11-21 05:22] LABS: Creatinine, Serum 0.74 mg/dL (0.51-0.95); Potassium 4.1 mmol/L (3.5-5.0); eGFR CKD-EPI 81.7 (>60)
[2023-11-21 06:14] LABS: ABS Basophils 0.1 10^3/uL (0.0-0.1); ABS Lymphocytes 0.7 10^3/uL (1.0-4.8); ABS Nucleated RBC 0.02 10^3/ul; Eosinophil % 0.1 %; Lymphocyte % 3.4 %; Nucleated Red Blood Cells % 0.1 %/100WBC (0.0-0.8)
[2023-11-21] MEDS: Vancomycin 750 MG in NS 0.9% 250 ML IVPB SCH (15:08)
[2023-11-21] MEDS: Vancomycin Random Level NOTE FOLLOW UP ONE (15:08)
[2023-11-21] MEDS: Metoprolol Tartrate 5 mg VIAL 5 ml VIAL (1 mg/ml) IV ONE (16:23)
[2023-11-21] MEDS: Metoprolol Tartrate 5 mg VIAL 5 ml VIAL (1 mg/ml) IV PRN (20:16)
[2023-11-22 00:38] LABS: Hematocrit 24.1 % (35-45); Mean Corpuscular Hemoglobin 30.5 pg (27-33); Mean Corpuscular Hgb Conc 33.1 g/dL (31-36); Mean Corpuscular Volume 91.9 fL (80-97); Platelet Count 423 10^3/uL (150-450); Red Blood Count 2.62 10^6/uL (3.63-4.92); Red Cell Distribution Width 15.2 % (12-17); White Blood Count 23.1 10^3/uL (3.8-11.8)
[2023-11-22 00:44] LABS: ABS Basophils 0.1 10^3/uL (0.0-0.1); ABS Lymphocytes 0.6 10^3/uL (1.0-4.8); ABS Neutrophils 20.3 10^3/uL (1.5-7.6); ABS Nucleated RBC 0.06 10^3/ul; Eosinophil % 0.1 %; Lymphocyte % 2.6 %; Nucleated Red Blood Cells % 0.2 %/100WBC (0.0-0.8)
[2023-11-22 04:34] LABS: Hematocrit 24.1 % (35-45); Hemoglobin 8.2 g/dL (11.5-14.3); Mean Corpuscular Hemoglobin 31.2 pg (27-33); Mean Corpuscular Volume 91.9 fL (80-97); Platelet Count 421 10^3/uL (150-450); Red Blood Count 2.62 10^6/uL (3.63-4.92); White Blood Count 21.9 10^3/uL (3.8-11.8)
[2023-11-22 04:39] LABS: ABS Basophils 0.1 10^3/uL (0.0-0.1); ABS Lymphocytes 0.8 10^3/uL (1.0-4.8); ABS Monocytes 1.7 10^3/uL (0.0-0.9); ABS Neutrophils 19.3 10^3/uL (1.5-7.6); ABS Nucleated RBC 0.04 10^3/ul; Lymphocyte % 3.5 %; Nucleated Red Blood Cells % 0.2 %/100WBC (0.0-0.8)
[2023-11-22 05:10] LABS: Albumin 2.1 g/dL (3.2-5.2); Albumin/Globulin Ratio 0.5 (1-3); Calcium 7.8 mg/dL (8.6-10.3); Creatinine, Serum 0.75 mg/dL (0.51-0.95); Globulin 4.3 g/dL (2-4); Magnesium 2.1 mg/dL (1.9-2.7); Phosphorus 2.5 mg/dL (2.5-5.0); Potassium 4.2 mmol/L (3.5-5.0); Total Bilirubin 0.5 mg/dL (0.2-1.0); Total Protein 6.4 g/dL (6.4-8.9); eGFR CKD-EPI 80.4 (>60)
[2023-11-22] MEDS ORDERED: Vancomycin Random Level NOTE FOLLOW UP ONE (14:30)
[2023-11-23 04:58] LABS: ABS Basophils 0.1 10^3/uL (0.0-0.1); ABS Lymphocytes 0.8 10^3/uL (1.0-4.8); ABS Monocytes 1.4 10^3/uL (0.0-0.9); ABS Neutrophils 15.6 10^3/uL (1.5-7.6); ABS Nucleated RBC 0.02 10^3/ul; Eosinophil % 0.2 %; Hemoglobin 7.9 g/dL (11.5-14.3); Lymphocyte % 4.3 %; Mean Corpuscular Hemoglobin 31.6 pg (27-33); Mean Corpuscular Hgb Conc 34.3 g/dL (31-36); Mean Platelet Volume 8.7 fL (7.5-11.2); Nucleated Red Blood Cells % 0.1 %/100WBC (0.0-0.8); Platelet Count 391 10^3/uL (150-450); Red Cell Distribution Width 15.2 % (12-17); White Blood Count 17.8 10^3/uL (3.8-11.8)
[2023-11-23 05:41] LABS: Albumin 2.1 g/dL (3.2-5.2); Albumin/Globulin Ratio 0.5 (1-3); Creatinine, Serum 0.64 mg/dL (0.51-0.95); Phosphorus 2.9 mg/dL (2.5-5.0); Potassium 4.4 mmol/L (3.5-5.0); Total Bilirubin 0.3 mg/dL (0.2-1.0); Total Protein 6.1 g/dL (6.4-8.9); eGFR CKD-EPI 89.3 (>60)
[2023-11-23] MEDS: Furosemide 40 mg/4 ml IV VIAL IV SLOW PU ONE (08:49)
[2023-11-23] MEDS ORDERED: Vancomycin Trough Check NOTE FOLLOW UP ONE (11:30)
[2023-11-24] MEDS: Levalbuterol 0.63MG/3ML NEB UNIT OF USE INH PRN (01:58)
[2023-11-24 05:27] LABS: ABS Basophils 0.1 10^3/uL (0.0-0.1); ABS Lymphocytes 0.8 10^3/uL (1.0-4.8); ABS Monocytes 1.1 10^3/uL (0.0-0.9); ABS Neutrophils 12.8 10^3/uL (1.5-7.6); ABS Nucleated RBC 0.01 10^3/ul; Eosinophil % 0.3 %; Hematocrit 21.9 % (35-45); Hemoglobin 7.4 g/dL (11.5-14.3); Lymphocyte % 5.2 %; Mean Corpuscular Hemoglobin 31.4 pg (27-33); Mean Corpuscular Volume 92.6 fL (80-97); Mean Platelet Volume 9.1 fL (7.5-11.2); Nucleated Red Blood Cells % 0.1 %/100WBC (0.0-0.8); Platelet Count 343 10^3/uL (150-450); Red Blood Count 2.36 10^6/uL (3.63-4.92); Red Cell Distribution Width 15.9 % (12-17); White Blood Count 14.8 10^3/uL (3.8-11.8)
[2023-11-24 05:46] LABS: Albumin 2.1 g/dL (3.2-5.2); Albumin/Globulin Ratio 0.6 (1-3); Calcium 7.9 mg/dL (8.6-10.3); Creatinine, Serum 0.56 mg/dL (0.51-0.95); Globulin 3.8 g/dL (2-4); Magnesium 1.7 mg/dL (1.9-2.7); Phosphorus 3.1 mg/dL (2.5-5.0); Potassium 4.6 mmol/L (3.5-5.0); Total Bilirubin 0.3 mg/dL (0.2-1.0); Total Protein 5.9 g/dL (6.4-8.9); eGFR CKD-EPI 92.2 (>60)
[2023-11-24] MEDS: Vancomycin Trough Check NOTE FOLLOW UP ONE (15:47)
[2023-11-25 09:58] LABS: ABS Basophils 0.1 10^3/uL (0.0-0.1); ABS Lymphocytes 0.8 10^3/uL (1.0-4.8); ABS Neutrophils 13.3 10^3/uL (1.5-7.6); ABS Nucleated RBC 0.01 10^3/ul; Eosinophil % 0.3 %; Hematocrit 22.8 % (35-45); Hemoglobin 7.5 g/dL (11.5-14.3); Lymphocyte % 5.4 %; Mean Corpuscular Hemoglobin 31.1 pg (27-33); Mean Corpuscular Hgb Conc 32.8 g/dL (31-36); Mean Platelet Volume 9.1 fL (7.5-11.2); Nucleated Red Blood Cells % 0.1 %/100WBC (0.0-0.8); Platelet Count 311 10^3/uL (150-450); Red Cell Distribution Width 16.5 % (12-17); White Blood Count 15.3 10^3/uL (3.8-11.8)
[2023-11-25 10:35] LABS: Calcium 7.8 mg/dL (8.6-10.3); Creatinine, Serum 0.6 mg/dL (0.51-0.95); Potassium 5.3 mmol/L (3.5-5.0); eGFR CKD-EPI 90.7 (>60)
[2023-11-25 12:09] LABS: Magnesium 1.7 mg/dL (1.9-2.7)
[2023-11-25] MEDS: Albuterol/Ipratropium NEB.SOL (2.5/0.5 MG) 3 ML NEB.SOLN INH SCH ×3 (12:50→19:37)
[2023-11-25] MEDS ORDERED: Albuterol/Ipratropium NEB.SOL (2.5/0.5 MG) 3 ML NEB.SOLN INH SCH (15:00)
[2023-11-25] MEDS: Alteplase (CATHFLO) 2 MG VIAL IV ONE (19:38)
[2023-11-27 09:28] LABS: ABS Basophils 0.1 10^3/uL (0.0-0.1); ABS Lymphocytes 1.4 10^3/uL (1.0-4.8); ABS Monocytes 1.2 10^3/uL (0.0-0.9); ABS Neutrophils 10.7 10^3/uL (1.5-7.6); Eosinophil % 0.1 %; Hematocrit 23.9 % (35-45); Hemoglobin 7.9 g/dL (11.5-14.3); Lymphocyte % 10.3 %; Mean Corpuscular Hemoglobin 31.5 pg (27-33); Mean Corpuscular Hgb Conc 33.2 g/dL (31-36); Platelet Count 316 10^3/uL (150-450); Red Blood Count 2.51 10^6/uL (3.63-4.92); Red Cell Distribution Width 17.5 % (12-17); White Blood Count 13.3 10^3/uL (3.8-11.8)
[2023-11-27 10:12] LABS: Calcium 8.2 mg/dL (8.6-10.3); Creatinine, Serum 0.63 mg/dL (0.51-0.95); Magnesium 1.8 mg/dL (1.9-2.7); Potassium 5.1 mmol/L (3.5-5.0); eGFR CKD-EPI 89.6 (>60)
[2023-11-27] MEDS: Albuterol/Ipratropium NEB.SOL (2.5/0.5 MG) 3 ML NEB.SOLN INH SCH (13:33)
[2023-11-28 09:51] LABS: Albumin 2.3 g/dL (3.2-5.2); Albumin/Globulin Ratio 0.6 (1-3); Calcium 8.3 mg/dL (8.6-10.3); Creatinine, Serum 0.68 mg/dL (0.51-0.95); Globulin 3.9 g/dL (2-4); Magnesium 1.8 mg/dL (1.9-2.7); Potassium 4.9 mmol/L (3.5-5.0); Total Bilirubin 0.4 mg/dL (0.2-1.0); Total Protein 6.2 g/dL (6.4-8.9)
[2023-11-29 10:02] LABS: ABS Lymphocytes 1.3 10^3/uL (1.0-4.8); ABS Neutrophils 6.6 10^3/uL (1.5-7.6); Eosinophil % 0.1 %; Hemoglobin 8.5 g/dL (11.5-14.3); Lymphocyte % 14.6 %; Mean Corpuscular Hemoglobin 32.7 pg (27-33); Mean Corpuscular Volume 96.3 fL (80-97); Mean Platelet Volume 8.9 fL (7.5-11.2); Platelet Count 280 10^3/uL (150-450); Red Cell Distribution Width 17.9 % (12-17)
[2023-11-29 10:38] LABS: Calcium 8.2 mg/dL (8.6-10.3); Creatinine, Serum 0.7 mg/dL (0.51-0.95); Magnesium 1.7 mg/dL (1.9-2.7); Potassium 4.3 mmol/L (3.5-5.0); eGFR CKD-EPI 87.4 (>60)
[2023-11-29] MEDS: Magnesium Sulfate 2 gm BAG 2 GM/50 ML BAG IVPB ONE (16:26)
[2023-11-29] MEDS ORDERED: Albuterol/Ipratropium NEB.SOL (2.5/0.5 MG) 3 ML NEB.SOLN INH PRN (18:20)
[2023-12-01 06:03] LABS: Hematocrit 22.4 % (35-45); Hemoglobin 7.6 g/dL (11.5-14.3); Mean Corpuscular Hemoglobin 32.4 pg (27-33); Mean Corpuscular Hgb Conc 33.9 g/dL (31-36); Mean Corpuscular Volume 95.6 fL (80-97); Platelet Count 248 10^3/uL (150-450); Red Blood Count 2.35 10^6/uL (3.63-4.92); Red Cell Distribution Width 17.7 % (12-17); White Blood Count 7.8 10^3/uL (3.8-11.8)
[2023-12-01 06:30] LABS: Blood Urea Nitrogen 27 mg/dL (6-24); CO2 Carbon Dioxide 28 mmol/L (22-32); Calcium 7.6 mg/dL (8.6-10.3); Chloride 106 mmol/L (101-111); Creatinine, Serum 0.69 mg/dL (0.51-0.95); Glucose 134 mg/dL (70-100); Magnesium 1.8 mg/dL (1.9-2.7); Potassium 4.2 mmol/L (3.5-5.0); Sodium 134 mmol/L (135-145); eGFR CKD-EPI 87.7 (>60)
[2023-12-01] MEDS: Magnesium Sulfate 2 gm BAG 2 GM/50 ML BAG IVPB ONE (10:30)
[2023-12-02 10:59] LABS: Rapid COVID-19 Molecular Undetected (Undetected)
[2023-12-03 02:45] LABS: Calcium 7.5 mg/dL (8.6-10.3); Creatinine, Serum 0.75 mg/dL (0.51-0.95); Magnesium 1.7 mg/dL (1.9-2.7); Potassium 4.4 mmol/L (3.5-5.0); eGFR CKD-EPI 80.4 (>60)
[2023-12-03] MEDS: Magnesium Sulfate 2 gm BAG 2 GM/50 ML BAG IVPB ONE ×2 (03:47→13:45)
[2023-12-03 07:38] LABS: ABS Eosinophils 0.1 10^3/uL (0.0-0.5); ABS Monocytes 0.7 10^3/uL (0.0-0.9); ABS Neutrophils 5.9 10^3/uL (1.5-7.6); ABS Nucleated RBC 0.01 10^3/ul; Eosinophil % 1.6 %; Hematocrit 23.6 % (35-45); Lymphocyte % 13.3 %; Mean Corpuscular Hgb Conc 33.9 g/dL (31-36); Mean Corpuscular Volume 97.4 fL (80-97); Mean Platelet Volume 8.9 fL (7.5-11.2); Nucleated Red Blood Cells % 0.1 %/100WBC (0.0-0.8); Platelet Count 213 10^3/uL (150-450); Red Blood Count 2.42 10^6/uL (3.63-4.92); White Blood Count 7.8 10^3/uL (3.8-11.8)
[2023-12-03] MEDS ORDERED: Magnesium Sulfate IV 1GM/100ML 1 GM/100 ML BAG IV ONE (10:11)
[2023-12-03 10:35] VITALS: BP 153/61
== END 2023-12-03 12:15 | DRG 870 ==
LOC: ED 15:31 → EDHOLD 16:49 → SUATTDRO 16:49 → ICU 17:46 → MEDTELE 11-23 21:30
PROVIDERS: ADMIT Student in an Organized Health Care Education/Training Program; ATTEND Hospitalist